=== PATIENT | female | born 1985 | race Caucasian/White ===

== ENCOUNTER 2017-05-03 06:53 | Day surgery (SDC) | payer OTHER ==
[~2017-05-03] VITALS: Ht 165.1 cm; Wt 82.1 kg
[~2017-05-03 06:53] MED LIST: AUGMENTIN 875-1 EACH PO; CHANTIX1 MG PO; CYCLOBENZAPRINE10 MG PO; CYCLOBENZAPRINE5 MG PO; FUROSEMIDE20 MG PO; HYDROCODON-ACE1 EA14; IBUPROFEN800 MG PO; KEFLEX500 MG PO; LABETALOL HCL100 MG PO; MELOXICAM15 MG PO; METOPROLOL TART50 MG; NAPROXEN500 MG PO; NICOTINE PATCH1 EA TD; NORCO 5-325 TA1 EACH PO; OMEPRAZOLE20 MG PO; PENICILLIN V P500 MG; PRENATAL COMPL1 EACH PO; SOMA350 MG PO; SUBOXONE 8 MG-1 EAC1 SL; ZOFRAN ODT4 MG SL
[2017-05-03] MEDS ORDERED: MULTIVITAMINS1 EAC7 PO (07:33)
--- NOTE | 2017-05-03 11:13 | NUR ---
05/03/17 1113 Megha Ramachandran 1109-PATIENT ARRIVED TO PACU ON 10L MASK 02 SAT 100% NONAROUSABLE. ORAL AIRWAY IN PLACE.
--- NOTE | 2017-05-03 11:56 | NUR ---
PT RETURNED FROM PACU. PT TEARFUL AND REPORTING PAIN OF 6/10. MD CONTACTED, WAITING FOR ORDERS. WARM BLANKETS PROVIDED. PT TOLERATING PO FLUID. BED RAILS UP. CALL LIGHT WITHIN REACH.
--- NOTE | 2017-05-03 12:40 | NUR ---
PT TOLERATING PO FOOD AND FLUIDS. FAMILY AT BEDSIDE. BED RAILS UP. CALL LIGHT WITHIN REACH.
[2017-05-03] MEDS ORDERED: KETOROLAC TROME10 MG PO (13:36)
[2017-05-03] MEDS ORDERED: PROMETHAZINE HC25 M1 PO (13:37)
--- NOTE | 2017-05-03 14:20 | NUR ---
LE 1330 UP TO BATHROOM. VOIDED. BACK IN ROOM GETTING DRESSED. 1345 DC INSTRUCTIONS GIVEN TO PT/MOTHER. LEFT VIA W/C.
--- NOTE | 2017-05-05 20:46 | OR ---
[facility] [address] [place], [place] [address] Signed DATE OF OPERATION: 05/03/2017 SURGEON: Celestina Breaux MD PREOPERATIVE DIAGNOSES: A 31-year-old, 3, para 3 with menorrhagia, dysmenorrhea, pelvic pain, endometrial thickening, and smoker. POSTOPERATIVE DIAGNOSES: A 31-year-old, 3, para 3 with menorrhagia, dysmenorrhea, pelvic pain, endometrial thickening, smoker, and endometrial polyp. ANESTHESIA: General endotracheal with pharyngeal mask per Elijah Gilliland CRNA. PROCEDURE: Hysteroscopy with dilation and curettage. INTRAVENOUS FLUIDS IN: 1500 mL of lactated Ringer's. URINE OUTPUT: 100 mL per straight cath. ESTIMATED BLOOD LOSS: 20 mL. PATHOLOGY: Endometrial curettings. FINDINGS: Mildly enlarged uterus sounding to approximately 9.5 cm, irregular endometrium appearing consistent with polyp. PROCEDURE TECHNIQUE: The patient was taken back to the operating table with IV fluids hanging. She was placed on the operating table in supine position, underwent rapid sequence intubation with pharyngeal mask and was then repositioned in dorsal lithotomy position in Jose stirru. She was then prepped and draped in the normal sterile fashion. A sterile weighted speculum was placed into the vagina and a curved retractor used to visualize her cervix. Electronically Signed By: CELESTINA BREAUX MD 05/05/17 2046 PATIENT NAME: MÓNICA WILCOX OPERATIVE REPORT DATE OF : 83 PHYSICIAN: ECLESTINA BREAUX MD REPORT #: [id number] REPORT IS CONFIDENTIAL AND NOT TO BE RELEASED WITHOUT AUTHORIZATION [facility] [address] [place], [place] [address] Signed A single-tooth tenaculum was placed on anterior lip of the cervix and the uterus was sounded to 9.5 cm. The cervix was then serially dilated and the hysteroscope was easily introduced. Good visualization of the uterine cavity was achieved seeing both ostia and irregularity of the endometrial cavity what appeared to be relatively long slender polyp along the posterior aspect of the uterus. The hysteroscope was removed and sharp curettage was then performed. The endometrial curettings were sent off to pathology. There was minimal bleeding. The uterus did appear to be somewhat boggy. Good uterine cry was noted with the use of the curette and all instruments were then removed from the cervix and vagina. The patient did receive one dose of IM Methergine 0.2 mg x1 as well as Toradol intraoperatively. The patient was awakened, extubated, and taken to recovery room in stable condition. There were no complications. Sponge, instrument, and counts were all correct. Celestina Breaux MD JKM/MODL /[id number] Electronically Signed By: CELESTINA BREAUX MD 05/05/17 2046 PATIENT NAME: MÓNICA WILCOX OPERATIVE REPORT DATE OF : 83 PHYSICIAN: CELESTINA BREAUX MD REPORT #: [id number] REPORT IS CONFIDENTIAL AND NOT TO BE RELEASED WITHOUT AUTHORIZATION
== END 2017-05-03 13:45 | disposition home or self-care (01) ==
LOC: DS 06:53
PROVIDERS: Obstetrics & Gynecology
PROC: 0UDB8ZX Extraction of Endometrium, Via Natural or Artificial Opening Endoscopic, Diagnostic (ICD-10-PCS; principal; 2017-05-03 09:45)
DX: N92.0 Excessive and frequent menstruation with regular cycle (principal); N84.0 Polyp of corpus uteri; I10 Essential (primary) hypertension; Z85.6 Personal history of leukemia; Z98.890 Other specified postprocedural states; Z87.891 Personal history of nicotine dependence; Z79.899 Other long term (current) drug therapy
CPT/HCPCS: 00952; J1100; J1885; J2210; J2250; J2405; J2704; J2765; J3010; J7120

== ENCOUNTER 2018-03-22 16:39 | Emergency (ER) | payer OTHER ==
[~2018-03-22] VITALS: Ht 165.1 cm; Wt 83.9 kg
[~2018-03-22 16:39] MED LIST changes: +KETOROLAC TROME10 MG PO; +MULTIVITAMINS1 EAC7 PO; +PROMETHAZINE HC25 M1 PO
[2018-03-22] MEDS ORDERED: VENTOLIN HFA18 GM INH (18:14)
[2018-03-22] MEDS ORDERED: CILOXAN5 ML OS (19:00)
== END 2018-03-22 19:12 | disposition home or self-care (01) ==
LOC: ED 16:39
DX: S05.92XA Unspecified injury of left eye and orbit, initial encounter (principal); W22.8XXA Striking against or struck by other objects, initial encounter; F17.200 Nicotine dependence, unspecified, uncomplicated
CPT/HCPCS: 99283

== ENCOUNTER 2022-05-27 08:56 | Inpatient (IN) | payer OTHER ==
[~2022-05-27] VITALS: Ht 165.1 cm; Wt 68.6 kg
--- NOTE | ~2022-05-27 | OR ---
[facility] [address] [place], [place] [address] Draft DATE OF OPERATION: 06/05/2022 SURGEON: Kiersten Dominguez MD PREOPERATIVE DIAGNOSES: 1. Increasing bilateral pleural effusion, right greater than left. 2. Septic emboli with cavitary changes, bilateral lung. 3. Tricuspid endocarditis. 4. Persistent episodic fever and elevated white count. POSTOPERATIVE DIAGNOSIS: Right bloody pleural effusion (scant aspirate). PROCEDURE: Right thoracentesis. ANESTHESIA: 1% lidocaine. INDICATION: This 36-year-old white woman has been hospitalized since May 27, 2022. She is currently managed by hospitalist, Dr. Bauer. She has been found to have infective endocarditis with multiple positive blood cultures, including tricuspid vegetations. She has septic emboli bilaterally to the lungs with small cavitary lesions and an increasing size of bilateral pleural effusion, right greater than left. Consideration has been made for drainage of the pleural fluid and the possibility it could be infected and a source for ongoing fever and white count, however, the tricuspid endocarditis is certainly the most likely cause. The risks of bleeding, infection, pneumothorax, and need for other indicated procedures, including chest tube were reviewed with the patient and her mother. They understand and wished to proceed. FINDINGS: Somewhat bloody pleural fluid was noted from the right side. One could never establish good ongoing free flow of fluid. Two separate sites were ultimately used on the right side, again showing only minimal fluid. Whether there is loculation or some other issue is uncertain. A chest x-ray is pending. The fluid has been sent for Gram stain, acid-fast bacilli, and cultures. DESCRIPTION OF PROCEDURE: In the upright position, the arms draped over the White stand and pillows for support. PATIENT NAME: MÓNICA WILCOX OPERATIVE REPORT DATE OF : 83 REPORT #: [id number] PHYSICIAN: KIERSTEN DOMINGUEZ MD PCP: DAYANARA DELGADO PAC REPORT IS CONFIDENTIAL AND NOT TO BE RELEASED WITHOUT AUTHORIZATION [facility] [address] [place], [place] [address] Draft The right posterior thorax was examined. The tip of the scapula was marked with skin, as her arms were draped over the White stand. The posterior thorax on the right was prepared with chlorhexidine solution and draped sterilely. 1% lidocaine was injected over what would likely be the 7th rib on the right side. The pleural space was entered and a small amount of pleural fluid noted. A thoracentesis catheter kit, angiocatheter was placed in the pleural space under aspiration and drained some cher, somewhat turbid fluid. It was not elizabeth pus, however. This was unable to be sustained for long despite 3-way stopcock in the usual maneuvers. On that basis, the needle was removed and two additional attempts were made lateral to this along the rib area. Again only scant pleural fluid was noted. The fluid that was obtained was approximately 20 mL at most. Specimen was sent for the aforementioned studies. A Band-Aid was applied. She tolerated procedure well. Postprocedure chest x-ray is pending. MD LEÓN Gomez/SHANNEN /[id number] cc: MD Dr. Lizette Whelan Copies: MILADY CRUZ MD ~ PATIENT NAME: MÓNICA WILCOX OPERATIVE REPORT DATE OF : 83 REPORT #: [id number] PHYSICIAN: KIERSTEN DOMINGUEZ MD PCP: DAYANARA DELGADO PAC REPORT IS CONFIDENTIAL AND NOT TO BE RELEASED WITHOUT AUTHORIZATION
--- NOTE | ~2022-05-27 | OR ---
[facility] [address] [place], [place] [address] Draft DATE OF OPERATION: 06/06/2022 SURGEON: Kiersten Dominguez MD PREOPERATIVE DIAGNOSES: 1. Bilateral pleural effusion, right greater than left. 2. Documented infective endocarditis, tricuspid valve with multiple pulmonary septic emboli with cavitary changes. POSTOPERATIVE DIAGNOSES: 1. Bilateral pleural effusion, right greater than left. 2. Documented infective endocarditis, tricuspid valve with multiple pulmonary septic emboli with cavitary changes. 3. Right pleural thickened loculations. PROCEDURE: Right tube thoracostomy (chest tube 28-Namibian.) ANESTHESIA: Intravenous sedation propofol. Lalit Navarrete CRNA and local 10 mL of 0.25% Marcaine with epinephrine. INDICATION: This 36-year-old white woman was admitted on May 27, 2022 with fevers of unknown origin, ultimately found to have infective endocarditis of the right tricuspid valve. This is related to relapse of intravenous drug abuse. She has had spiking fevers, elevated white count, and so forth. Her initial CT scan confirmed additionally multiple cavitary lesions of the right and left lungs and a small pleural effusion bilaterally. She was making improvement on IV antibiotic nafcillin concordant to staph cultures obtained, but then began having increasing white count elevation. She has not really had dyspnea, shortness of breath or hemoptysis. A repeat CT scan was performed two days ago, which showed increased size of right and left pleural effusions. The right is greater than the left. Concern is maintained for the possibility of empyema development under the circumstances. I performed a right-sided thoracentesis yesterday, which delivered only 20 mL of fluid that was somewhat bloody. Gram stain confirmed no evidence of organisms but did show multiple and many white cells and some red cells. On the basis of her pleural effusion and in hopes of avoiding true empyema, I have recommended right-sided chest tube, possible left side depending on clinical findings. The patient and her family PATIENT NAME: MÓNICA WILCOX OPERATIVE REPORT DATE OF : 83 REPORT #: [id number] PHYSICIAN: KIERSTEN DOMINGUEZ MD PCP: DAYANARA DELGADO PAC REPORT IS CONFIDENTIAL AND NOT TO BE RELEASED WITHOUT AUTHORIZATION [facility] [address] [place], [place] [address] Draft understand the risk of bleeding, infection, lung injury, need for other indicated procedures and so forth. FINDINGS: Entry of the pleural space demonstrated chicken fat like pleural debris. Sweeping of the finger allowed for encountering of a pleural space. A 28-Namibian chest tube was insinuated into the space, but still not much delivery of fluid in fact. There was no evidence of air leak once the Pleur-evac type device was set up to the atrium. Given the findings, I elected against placing a similar chest tube on the left side at this time. DESCRIPTION OF PROCEDURE: The patient was brought to the operating room and in the supine position with arms out, she was given intravenous sedation. She has been on intravenous Zyvox antibiotic. The left and right chest spaces were prepared with chlorhexidine solution and draped sterilely. An area lateral to the right nipple areola complex in the anterior axillary line, an area that was designated as probably the 6th rib. Infiltration of Marcaine 0.25% with epinephrine was undertaken. A transverse incision was made. Dissection carried through the subcutaneous tissue with blunt electrocautery dissection. Once the rib was encountered, additional local anesthetic was injected. Entry to the right pleural space did not demonstrate free-flowing fluid by any means. The pleural space was ultimately entered with careful insinuation of a Carmen clamp and gentle spreading of the soft tissue directly over the rib. A small amount of fluid was withdrawn. The index finger was placed into the pleural space. There was encountered pleural adhesions and pleural thickening with chicken fat like consistency. Finger was swept anteriorly laterally and as much as possible along the chest wall to create a space which was ultimately forthcoming. A 28-Namibian straight chest tube was insinuated into the space and passed without resistance to about 14 cm. It was secured to the skin with nylon suture and attached to an atrium Pleur-Evac device at 20 cm suction. A brief amount of air leak was noted, which quickly sealed. There is impressively little pleural fluid withdrawn through the chest tube intervention. Good fluctuation on the tube was noted indicating good position in the pleural space. The tube was then secured with pink tape to the chest wall, sterilely dressed and connections also secured with pink tape. She was ultimately allowed to emerge from sedation, taken to recovery room in good condition having suffered no known complications. Sponge, needle, and instrument counts reported as correct x3. Blood loss was minimal. A postprocedure chest x-ray is pending. Kiersten Dominguez MD PATIENT NAME: MÓNICA WILCOX OPERATIVE REPORT DATE OF : 83 REPORT #: [id number] PHYSICIAN: KIERSTEN DOMINGUEZ MD PCP: DAYANARA DELGADO PAC REPORT IS CONFIDENTIAL AND NOT TO BE RELEASED WITHOUT AUTHORIZATION [facility] [address] [place], [place] [address] Draft /[facility] /[id number] cc: MD Selvin Winters MD Copies: MILADY CRUZ MD, LOHITH MD ~ PATIENT NAME: MÓNICA WILCOX OPERATIVE REPORT DATE OF : 83 REPORT #: [id number] PHYSICIAN: KIERSTEN DOMINGUEZ MD PCP: DAYANARA DELGDAO PAC REPORT IS CONFIDENTIAL AND NOT TO BE RELEASED WITHOUT AUTHORIZATION
--- NOTE | ~2022-05-27 | CONS ---
[facility] [address] [place], [place] [address] Draft DATE OF CONSULTATION: 06/04/2022 REQUESTING PHYSICIAN: Dr. Bauer. PROBLEM: Bilateral pleural effusion, known tricuspid endocarditis, increasing white count. HISTORY OF PRESENT ILLNESS: This 36-year-old white woman has had a relapse of intravenous drug abuse and was admitted to the hospital by Dr. Titus on May 27, 2022 (8 days ago) with "pneumonia." She had presented with several weeks of fever, chills, body aches, and cough. She presented to emergency room with hyponatremia and leukocytosis, and lactic acid level of 2.1. Evaluation evolved under the care of Dr. Titus and subsequently Dr. Edwards, which included an echocardiogram confirming valvular vegetations of the tricuspid valve consistent with endocarditis. The patient is known to have menorrhagia and has undergone transvaginal ultrasound and pelvic ultrasound on May 31, 2022 showing a normal right ovary and nonvisualized left ovary and no particular abnormality of the uterus other than prior scar findings. A chest CT scan performed on May 30, 2022 had shown multiple cavitary lesions and no specific pulmonary infiltrate, but did show a modest size right pleural effusion. There were some pulmonary nodules, possibly infectious related as well. There was some interlobar fluid on the right side. Intravenous antibiotics had been administered and she has been improving in that regard, however, her white count has been progressively increasing. Her white count at presentation was 17,000, down to 15.3 on May 30 and steadily increasing to the point it is now 27.8 on June 04. 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 A CT scan was repeated yesterday, June 03, which showed a moderate to large size right pleural effusion and a smaller, but still substantial left pleural effusion. Pulmonary nodules are highly suggestive of septic emboli. There was no actual pulmonary embolism proper. The patient feels reasonably well. She has only mild dyspnea. Consultation was obtained on the basis of the pleural fluid and whether or not empyema is developing based on her underlying issues. A chest x-ray performed today, showed bibasilar fluid, no pneumothorax and a PICC line with the tip in the cavoatrial junction. Her past medical history is notable for intravenous drug use in the past with subsequent recovery and ultimately counseling for those afflicted by addiction, but more recent relapse into IV drug use. Care was assumed from Dr. Edwards yesterday, June 03 and consultation is obtained at this time to better consider the issues related to the pleural effusions as a cause of increasing white count. PATIENT NAME: MÓNICA WILCOX CONSULTATION DATE OF : 83 REPORT #: [id number] PHYSICIAN: KIERSTEN DOMINGUEZ MD PCP: DAYANARA DELGADO PAC REPORT IS CONFIDENTIAL AND NOT TO BE RELEASED WITHOUT AUTHORIZATION [facility] [address] [place] [id number] Draft Of note, her blood cultures have shown staph aureus, considered oxacillin sensitive. A change to antibiotic regimen to include vancomycin has been outlined by Dr. Bauer today. REVIEW OF SYSTEMS: She denies any actual shortness of breath, particularly. She has had no hemoptysis. She denies chest pain. PHYSICAL EXAMINATION: GENERAL: Pleasant white woman, accompanied by her mother and a male significant other. VITAL SIGNS: Temperature at the moment is 97.7, pulse of 83, blood pressure 123/73, and O2 saturation on room air is 97%. NECK: Trachea is midline. She has no jugular venous distention. LUNGS: Breath sounds are somewhat diminished bilaterally. There are no E to A changes. She has extensive tattoos on her posterior thorax. HEART: Regular. I do not detect murmur at this time. ABDOMEN: Nondistended. EXTREMITIES: Show no clubbing, but there is mild edema bilaterally. LABORATORY STUDIES: At the moment show white count 27.8, hematocrit 26.9, and platelets 476,000. Manual differential shows 83% neutrophils, 9% band forms. Her coag studies at admission showed an INR of 1.14. Chem profile recently normal electrolytes, though sodium is slightly low at 132, magnesium is 1.5, bilirubin 1.2, alkaline phosphatase 285. No other liver enzymes normal. Urinalysis at admission showed probable urinary tract infection, currently is normal on June 02, though there was 7-11 white cells per high-power field. Her tox screen at admission showed buprenorphine as well as marijuana. Serology admission was negative for coronavirus or influenza. I reviewed her CT scan of chest, plain x-rays and reports from all of those and other images. ASSESSMENT: Her pleural effusion in the right has increased over the past few days as has that on the left. Septic emboli manifests as multiple cavitary lesions as noted as well. She is considered to have infective endocarditis of the tricuspid valve based on imaging studies and clinical history and blood cultures. If there is infected fluid of the pleural space, it should absolutely be drained so as to avoid forming a more consolidated empyema, which would portend lung entrapment and so forth. Under the circumstances, I would recommend thoracentesis on the right side initially. Frankly purulent material was noted and a chest tube would be more appropriate. Given her underlying social and medical issues, a chest tube would be more PATIENT NAME: MÓNICA WILCOX CONSULTATION DATE OF : 83 REPORT #: [id number] PHYSICIAN: KIERSTEN DOMINGUEZ MD PCP: DAYANARA DELGADO PAC REPORT IS CONFIDENTIAL AND NOT TO BE RELEASED WITHOUT AUTHORIZATION [facility] [address] [place], [place] [address] Draft effectively placed under anesthetic conditions in the operating room setting and it could be placed in a bilateral position. If the pleural fluid proves to be primarily reactive and without sign of elizabeth infection, then thoracentesis alone will be beneficial for decompressing the pleural space as well as characterizing the fluid itself. The risks of bleeding, infection, and pneumothorax were reviewed. I have reviewed all this with Dr. Bauer and he agrees. We will plan to do right-sided thoracentesis in the near future. Kiersten Dominguez MD /MODL /[id number] cc: MD Dr. Lizette Monreal MD Copies: MILADY TITUS MD, LOHITH MD ~ PATIENT NAME: MÓNICA WILCOX CONSULTATION DATE OF : 83 REPORT #: [id number] PHYSICIAN: KIERSTEN DOMINGUEZ MD PCP: DAYANARA DELGADO PAC REPORT IS CONFIDENTIAL AND NOT TO BE RELEASED WITHOUT AUTHORIZATION
[~2022-05-27 08:56] MED LIST changes: +CILOXAN5 ML OS; +VENTOLIN HFA18 GM INH
--- NOTE | 2022-05-27 14:11 | NUR ---
pt to room 115 from er via strecher - tele and bedside pulse ox placed, pt moved on own from strecher to bed and was weighed. Moans and groans in pain, generalized ache she describes. pt has hx of incontincnce - attends placed. iv fusing 125/hr. vitals in. water and call light with pt.
--- NOTE | 2022-05-27 17:36 | NUR ---
pt up in for meal. call light in reach - rn talked with dr to update on rx history - pt used old meds for comfort.
--- NOTE | 2022-05-27 18:27 | NUR ---
assisted pt from to bed, max assist - pt very unsteady and can not stand on her own, back to bed - on left side with pillows to position.
--- NOTE | 2022-05-27 19:05 | NUR ---
RECEIVED REPORT FROM OFFGOING SHIFT, HOURLY ROUNDING INITIATED.
--- NOTE | 2022-05-27 19:16 | EKG ---
[facility] [address] [facility] [place], [place] [address] Signed Sinus tachycardia Otherwise normal ECG No previous ECGs available Confirmed by MILADY CRUZ MD ([id number]) on 05/27/2022 7:15:51 PM Electronically Signed By: MILADY CRUZ MD 05/27/221915 PATIENT NAME: MÓNICA WILCOX Electrocardiogram DATE OF : 83 PHYSICIAN: MILADY CRUZ MD REPORT #: [id number] REPORT IS CONFIDENTIAL AND NOT TO BE RELEASED WITHOUT AUTHORIZATION
--- NOTE | 2022-05-27 19:18 | NUR ---
PT COMLPAINING OF DISCOMFORT, TEMPERATURE CHECKED AND FOUND TO BE 102. PT HAS TYLENOL/MOTRIN ORDERED BUT OUT OF SCHEDULE AT THIS TIME. CONTACTED MD AND STATED SHE WOULD PUT IN NEW ORDERS.
--- NOTE | 2022-05-27 20:15 | NUR ---
in to assist rn with pt pivot to bsc, 1-2pa, voided, back to bed, pillows in place, ice water filled, no further needs at this time
--- NOTE | 2022-05-27 21:27 | NUR ---
PT TEMPERATURE TAKEN POST-TYLENOL AND FOUND TO BE REDUCED TO 100.3. WILL CONTINUE TO MONITOR.
--- NOTE | 2022-05-27 21:30 | NUR ---
in to assist with vs, pt is feeling angelica villalta aware
--- NOTE | 2022-05-28 | NUR ---
in to assist pt with new gown and linen, repostitioned to left side, pts temp returning to normal
--- NOTE | 2022-05-28 00:04 | NUR ---
IN PT ROOM RESPONDING TO CALL LIGHT. PT CLOTHING/BEDDING WET, CHECKED TEMPERATURE AND FEVER HAS BROKEN - 98.5 - PT BEDDING/GOWN CHANGED OUT, PT REPOSITIONED, CALL LIGHT IN REACH
--- NOTE | 2022-05-28 02:15 | NUR ---
in to get vs, pt assisted onto the bedpan, pt asking for a pain medication, rn informed
--- NOTE | 2022-05-28 03:30 | NUR ---
in to provided pt with blanket, pt felt like she needed to pass a bm, 1pa pivot to the bsc, back to bed, postitioned high up on right side, pillow to the left hip, pillow between knees, call light in hand
--- NOTE | 2022-05-28 03:33 | NUR ---
IN PT ROOM FOR ROUNDING. PT RESTING, EYES CLOSED, BREATHING EVEN AND UNLABORED, NO INDICATION OF PAIN OR DISCOMFORT. CALL LIGHT IN REACH.
--- NOTE | 2022-05-28 05:06 | NUR ---
IN PT ROOM FOR ROUNDING. PT RESTING ON RIGHT SIDE, PILLOW SUPPORTING TO KEEP PATIENT OFF OF BACKSIDE WHICH IS PAINFUL TO LAY ON. PT HAS NO COMPLAINT OF PAIN OR DISCOMFORT AT THIS TIME. CALL LIGHT IN REACH.
--- NOTE | 2022-05-28 09:00 | NUR ---
PATIENT SITTING UP IN CHAIR AT THIS TIME, NO ACUTE DISTRESS NOTED. PATIENT REPORTS SHE SLEPT WELL LAST NIGHT. ADMIN TYLENOL 650MG PO, MOTRIN 400MG PO AND ROBITUSSIN 10ML FOR GENERLAZIED PAIN AND COUGH. PATIENT DENIES NEEDS AT THIS TIME. PERSONOL SUPPLIES AND CALL LIGHT WITHIN REACH.
--- NOTE | 2022-05-28 10:23 | NUR ---
ADMIN ZOFRAN 4MG IV FOR NAUSEA.
--- NOTE | 2022-05-28 10:57 | NUR ---
ASSISTED PT BACK TO BED WIT BY ASSIST. PT WAS TANGLED IN IV/EKG LEADS, NEW GOWN AFTER UNTANGLMENT, BACK TO BED POSITIONED TO R SIDE W/PILLOW UNDER L HIP, R ARM FLOATED W/PILLOW, WARM BLANKETS GIVE. SHE TOLERATED MOVEMENT POORLY W/GRIMICING AND HEAVY BREATHING. SHE IS COMFORTABLE IN BED & STATES SHE WOULD LIKE TO WAIT FOR HER SHOWER NOW SHE IS "TOO TIRED" AND "PLEASE LET ME SLEEP". I STATED I WOULD CHECK BACK WITH HER LATER. CALL LIGHT IN HAND.
[2022-05-28] MEDS ORDERED: IBU-200200 MG PO (11:57)
--- NOTE | 2022-05-28 11:57 | NUR ---
MED REC COMPLETE
--- NOTE | 2022-05-28 12:39 | NUR ---
CHECKED TWICE TO TALK WITH PATIENT. ONCE ASLEEP. THIS TIME HAS LUNCH IN, HAS VISITOR AND SHE IS USING PHONE. STATES SHE IS "BUSY".
--- NOTE | 2022-05-28 12:46 | NUR ---
PATIENT ASSISTED TO RESTROOM AT THIS TIME. PATIENT NOTED TO BE VERY WEAK, GAIT A BIT UNSTEADY. 1PA USING FWW. SIGNIFICANT OTHER AT BEDSIDE.
--- NOTE | 2022-05-28 14:21 | NUR ---
PT ALERT, ORIENTED AND SITTING IN CHAIR. TEARS BEGAN TO FLOW I VISITED WITH PT. STATED SHE SLEPT OK, GOOD VISIT. PT REQUESTED PRAYER, LEFT G.POST AND GAVE BLESSING. WILL FOLLOW
--- NOTE | 2022-05-28 14:27 | NUR ---
PATIENT IN BED RESTING, EYES CLOSED, RESPIRATIONS EVEN AND NON LABORED. PATIENT'S IV PATENT, FLUIDS INFUSING PER PROVIDER ORDER. CALL LIGHT WITHIN REACH.
--- NOTE | 2022-05-28 15:30 | NUR ---
PT GOT SHOWER. PT SITTING UP IN CHAIR CALL LIGHT WITHIN REACH NO FURTHER TASKS AT THIS TIME
--- NOTE | 2022-05-28 19:25 | NUR ---
received report from offgoing shift. hourly rounding initiated
--- NOTE | 2022-05-28 21:09 | NUR ---
in pt room for rounding, pt resting on back, pillow under side, pt slightly labile, teary at times. pt states she "misses family" and is "sorry I got this sick". Pt call light in reach
--- NOTE | 2022-05-28 22:35 | NUR ---
in pt room for medication adminstration. pt complaining of pain generalized throughout body and "especially my butt" (coccyx). Pt given pain medication and repositioned to pt relief. Pt call light in reach, no further complaint of discomfort.
--- NOTE | 2022-05-29 01:22 | NUR ---
in pt room for assessment, pt resting on back, assisted with repositioning. Pt states she has "mild" pain, can wait for availability of medication. Pt call light in reach
--- NOTE | 2022-05-29 03:30 | NUR ---
in pt room to assist to restroom. Pt complaining of "lots of pain". Pt assisted to bathroom and back to bed without incident, respositioned for maximal confort. Pt states that pain is better with respositioning, no further complaint at this time, call light in reach
--- NOTE | 2022-05-29 04:46 | NUR ---
in pt room for medication administration and repositioning. Pt assisted with repositioning and given pain medication, call light in reach
--- NOTE | 2022-05-29 05:47 | NUR ---
in pt room for rounding. pt resting on back, HOB elevated, call light in reach, no complaint of pain at this time.
--- NOTE | 2022-05-29 08:08 | NUR ---
PT CALLED FOR ASSISTANCE TO THE RESTROOM. SHE IS ABLE TO STAND ON HER OWN WITH THE USE OF A FWW. SHE IS STEADY ON HER FEET BUT COMPLAINS OF SLIGHT PAIN IN HER LEGS. PT IS ABLE TO PERFORM OWN JAMMIE CARE. NEW BREIF, HANDWASHING, ABULATED BACK TO CHAIR FOR BREAKFAST. LINENS WERE CHANGED, SHE WAS GIVEN TWO WARM BLANKETS. FEET ARE ELEVATED. CALL LIGHT AND BELONGINGS BESIDE HER.
--- NOTE | 2022-05-29 10:11 | NUR ---
PATIENT SITTING IN CHAIR, NO ACUTE DISTRESS. PATIENT PROVIDED WITH TYLENOL 650MG PO AND IBUPROFEN 400MG PO FOR GENERALIZED PAIN. PATIENT IS ON ROOM AIR, RESPIRATIONS EVEN AND NON LABORED. PT REPORTS BLOOD IN SPUTUM WHEN SHE COUGHS, THIS RN VIZUALIZED SPUTUM-THIN LIGHT COLORED BLOOD NOTED. SWELLING NOTED TO LEGS, ENCOURAGED ELEVATION AND AMBULATION. IV SITE PATENT, ABX INFUSING PER PROVIDER ORDER. NO CURRENT NEEDS, PERSONAL SUPPLIES AND CALL LIGHT WITHIN REACH.
--- NOTE | 2022-05-29 10:15 | NUR ---
PT REQ TO USE BATHROOM. PT ASSISTED TO BATHROOM. SBA W FWW. PT CALLED WHEN COMPLETE. PT STATED SHE WAS UNABLE TO CLEAN HER BOTTOM/ JAMMIE AREA. I CLEANED PT BOTTOM/JAMMIE AREA. PT ASSISTED BACK TO CHAIR, PRIOR TO PT SITTING DOWN IN CHAIR PT WAS INDEP STANDING IN ROOM WO WALKER AND WAS ABLE TO EASILY SIT BACK IN CHAIR. PT WAS STABLE THE ENTIRE TIME. NO FURTHER NEEDS. CALL LIGHT WITHIN REACH
--- NOTE | 2022-05-29 10:21 | NUR ---
SPOKE WITH PATIENT IN ROOM. PATIENT IS UP IN CHAIR, ROOM DARKENED. STATES SHE LIVES WITH S.O. AND KIDS. SHE DRIVES. IS NOT WORKING. USES NO DME. HAS STAIRS AT HOME BUT NO ISSUES WITH THEM NORMALLY. PATIENT STATES SHE IS NOT WORRIED ON FOOD EXACTLY BUT IS WORRIED ABOUT AFFORDING UTILITIES, ESPECIALLY ELECTRIC. STATES SHE RAN OUT OF PHONE MINUTES TO CALL [employer]. DISCUSSED SHE CAN USE ROOM PHONE HERE IF SHE WOULD LIKE. WILL MAKE SURE SHE HAS PHONE NUMBER FOR THEM. SHE WILL HAVE TRANSPORTATION HOME SHE STATES AT DISCHARGE AND FEELS SAFE TO RETURN THERE. SHE HAS PCP, ALTHOUGH STATES SHE HASN'T BEEN THERE FOR AWHILE. SHE CAN THINK OF NOTHING SHE NEEDS.
--- NOTE | 2022-05-29 12:46 | NUR ---
PATIENT UP TO RESTROOM, SBA WITH WALKER. PATIENT REPORTS GENERALIZED WEAKNESS, GAIT NOTED TO BE IMPROVING. PATIENT DECLINED TO SIT UP IN CHAIR AT THIS TIME, BACK TO BED PER HER REQUEST. FRESH WATER PROVIDED. ENCOURAGED PATIENT TO CALL IF SHE HAS NEEDS. PERSONAL SUPPLIES AND CALL LIGHT WITHIN REACH.
--- NOTE | 2022-05-29 16:10 | NUR ---
pt call light answered. pt req to use bathroom. pt provided walker but indep in bathroom. pt indep back to bed. ice water given. blankets provided. pt req pain med. rn notified. no further needs. call light within reach
--- NOTE | 2022-05-29 19:03 | NUR ---
received report from offgoing shift, hourly rounding initiated
--- NOTE | 2022-05-29 19:40 | NUR ---
IN TO ASSIST PT TO THE BATHROOM, SBA/SUPERVISION, BACK TO BED, ICE WATER FILLED
--- NOTE | 2022-05-29 21:05 | NUR ---
IN TO ASSIST PT TO THE TOILET, BACK TO BED, VS DONE, PT REQUESTED DINNER REHEATED, PROVIDED, NO FURTHER NEED AT THIS TIME
--- NOTE | 2022-05-29 21:26 | NUR ---
in pt room for rounding. pt resting on back, call light in reach, breathing even and unlabored with no complaint of pain at this time.
--- NOTE | 2022-05-29 22:20 | NUR ---
IN TO ASSIST PT TO THE TOILET, POSITIONED ON SIDE FOR COMFORT
--- NOTE | 2022-05-29 22:43 | NUR ---
In pt room for rounding, pt resting on side, states discomfort, repositioned on back with pillow under left side for comfort, pt states she is in pain, medication available and administered. call light in reach
--- NOTE | 2022-05-29 23:53 | NUR ---
in pt room for rounding, pt resting with eyes closed, breathing even and unlabored, call light in reach
--- NOTE | 2022-05-30 00:14 | NUR ---
in pt room in answer to call light. pt requesting socks off while in bed. pt bedding reset and socks removed, pt states increase in comfort. call light in reach, no complaint of pain
--- NOTE | 2022-05-30 03:49 | NUR ---
pt assisted with pillows once more, warm blanket provided
--- NOTE | 2022-05-30 04:50 | NUR ---
in pt room for pain medication administration and repositioning. pt complaining of pain in back - pulled up in bed, repositioned, no further complaint. call light in reach.
--- NOTE | 2022-05-30 05:12 | NUR ---
IN TO SEE IF PT WOULD LIKE TO GET UP TO CHAIR. PT REFUSED. NO FURTHER NEEDS. CALL LIGHT WITHIN REACH
--- NOTE | 2022-05-30 05:37 | NUR ---
in pt room for rounding. pt resting on back, breathing even and unlabored. Pt call light in reach, no indication of pain
--- NOTE | 2022-05-30 07:10 | NUR ---
REPORT RECIEVED FROM JOSE F STEPHENSON, ALL QUESTIONS ANSWERED.
--- NOTE | 2022-05-30 09:28 | NUR ---
PT IN CHAIR. VITALS AND IS AND OS COMPLETE. PT REQ TO GET BACK IN BED. PT ASSISTED BACK TO BED. SBA W FWW. PT IS VERY STEADY AND NEEDS NO HELP FROM ME. PT ABLE TO STAND WO WALKER AND SIT HERSELF IN BED. PT PROVIDED BLANKETS. NO FURTHER NEEDS. CALL LIGHT WITHIN REACH
--- NOTE | 2022-05-30 09:34 | NUR ---
MORNING ASSESSMENT COMPLETE. PT UP IN RECLINER. BILAT UPPER EXP WHEEZE AND COARSE BASES HEARD. PT C/O BACK PAIN, WOULD LIKE TO AMBULATE HALLWAYS TODAY. EXPLAINED PAIN MEDICATION SCHEDULE. PT DENIES FURTHER NEEDS AT THIS TIME. CALL LIGHT IN REACH.
--- NOTE | 2022-05-30 11:30 | NUR ---
PT UP AMBULATING WITH PHYSICAL THERAPY. TOLERATED WELL STANDBY ASSIST.
--- NOTE | 2022-05-30 13:29 | NUR ---
PT UP TO RESTROOM AND BACK TO CHAIR. DR PAIZ IN ROOM WITH PATIENT. CALL LIGHT IN REACH.
--- NOTE | 2022-05-30 19:36 | NUR ---
REPORT RECEIVED FROM DAY SHIFT RN. PT SITTING IN RECLINER ALERT AND ORIENTED. DENIES NEEDS. WHITE BOARD UPDATED. CALL LIGHT IN REACH.
--- NOTE | 2022-05-30 22:15 | NUR ---
EVENING ASSESSMENT COMPLETE. SCHEDULED MEDS ADMIN PER EMAR. PT REPORTS BACK/SIDE PAIN 11/23. PRN FOR PAIN ADMIN PER EMAR. PT REPORTS BED IS UNCOMFORTABLE AND CAUSING BACK PAIN. EGG CRATE MATTRESS PLACED. OCCASIONAL COUGH NOTED. PT ON RA. SpO2 100%. DENIES SOB. LUNGS DIM IN THE BASES. IV ABX INFUSING WNL. PT DENIES QUESTIONS OR CONCERNS. CALL LIGHT IN REACH.
--- NOTE | 2022-05-30 23:42 | NUR ---
CALL LIGHT ANSWERED. ICE WATER AND GINGERALE PROVIDED PER REQUEST. ROOM TEMP ADJUSTED. PT REPORTS SHE IS RESTING BETTER WITH EGG CRATE MATTRESS TOPPER. NO FURTHER NEEDS.
--- NOTE | 2022-05-31 01:47 | NUR ---
PT REPORTS SHE IS "GETTING SOME REST." ROOM TEMP ADJUSTED PER REQUEST. IV ABX INFUSING WNL. NO FURTHER NEEDS.
--- NOTE | 2022-05-31 04:12 | NUR ---
CALL LIGHT ANSWERED. PT REQUESTING PRN FOR PAIN. ADMIN PER ORDER. PRN GIVEN FOR COUGH PER REQUEST. PT WITH HACKING COUGH AND SMALL AMOUNT PINK TINGED SPUTUM. ASSESSMENT COMPLETE. FRESH WATER PROVIDED. NO FURTHER NEEDS.
--- NOTE | 2022-05-31 06:21 | NUR ---
PT RESTING WITH EYES CLOSED. AWAKENS EASILY. IV ABX INFUSING PER ORDER. NO NEEDS AT THIS TIME. CALL LIGHT IN REACH.
--- NOTE | 2022-05-31 07:20 | NUR ---
report from Stephany rn, pt eyes closed resting. call light in reach.
--- NOTE | 2022-05-31 09:15 | NUR ---
IN ROOM FOR ASSESSMENT AND MEDS, PT UP IN AFTER SHOWER REPORTS FEELING BETTER BUT STILL WEAK. DRINKING COFFEE, IV FUSING R ARM. LUNGS CLEAR - ASKING ABOUT CT RESULTS - REFERED TO DR WITH ROUNDS TODAY. CALL LIGHT IN REACH.
--- NOTE | 2022-05-31 10:17 | NUR ---
assisted pt to use IS while in for po prn meds and cough syrup - demonstrates the use well with reinforcement. pt talkative, wanting to go home.
--- NOTE | 2022-05-31 13:50 | NUR ---
pt resting in bed, complains of indigestion - mom given po. iv abx fusing.
--- NOTE | 2022-05-31 16:45 | NUR ---
cough meds and po tylenol/motrin given for comfort. pt visiting with family. call light in [facility] - iv.
--- NOTE | 2022-05-31 19:39 | NUR ---
REPORT RECEIVED FROM DAY SHIFT RN. PT LYING IN BED ALERT AND ORIENTED. IV ABX COMPLETE. PT SL AT THIS TIME. NO FURHTER NEEDS. WHITE BOARD UPDATED. CALL LIGHT IN REACH.
--- NOTE | 2022-05-31 21:24 | NUR ---
PT UTILIZES CALL LIGHT, REPORTS HEARTBURN. PRN ADMINISTERED. SEE EMAR. PT STATES THAT SHE IS CRAVING CHOCOLATE, REQUESTS HOT CHOCOLATE PROVIDED. PT DENIES FURTHER NEEDS AT THIS TIME. CALL LIGHT IN REACH.
--- NOTE | 2022-05-31 22:30 | NUR ---
EVENING ASSESSMENT COMPLETE. SCHEDULED MEDS ADMIN PER EMAR. IV ABX INFUSING WNL. PT REPORTS SIDE/BACK/CHEST DISCOMFORT AND RIGHT GROIN PAIN THAT IS SHARP AND CONSTANT. NO REDNESS OR WARMTH NOTED IN RIGHT GROIN. PRN FOR PAIN ADMIN PER EMAR. PT DENIES SOB. RA. SpO2 HIGH 90'S. RESPIRATIONS EVEN. C/O SINUS CONGESTION AND COUGH. PRN FOR COUGH ADMIN. UP TO BR TO VOID. NO BLEEDING NOTED. LINENS STRAIGHTENED. BACK TO BED. PT DENIES FURTHER NEEDS AT THIS TIME. CALL LIGHT IN REACH.
--- NOTE | 2022-05-31 23:23 | NUR ---
DR. PAIZ NOTIFIED OF PT INCREASED DISCOMFORT AND RIGHT GROIN PAIN AFTER PRN FOR PAIN ADMIN. NEW TELEPHONE ORDERS RECEIVED VERIFIED WITH READBACK METHOD.
--- NOTE | 2022-05-31 23:55 | NUR ---
WARM PACK WRAPPED WITH PILLOW CASE PROVIDED.
--- NOTE | 2022-06-01 02:27 | NUR ---
PT RESTING IN BED WITH EYES CLOSED. RESPIRATIONS EVEN. HOB ELEVATED. IV ABX INFUSING PER ORDER. K-PAD IN USE. CALL LIGHT IN REACH.
--- NOTE | 2022-06-01 03:33 | NUR ---
CALL LIGHT ANSWERED. PT UP TO BR WITH SBA TO VOID. BACK TO BED. INCREASED RESPIRATIONS AND COUGH WITH ACTIIVTY. PT WITH SMALL AMOUNT BLOOD TINGED SPUTUM. SpO2 97% ON RA. HR 90'S. PT REPORTS SOB, ABLE TO "CATCH HER BREATH" AFTER REST. SCATTERED WHEEZE HEARD IN ALL LUNG ALLEN. HOB ELEVATED. PRN FOR 6/10 GENERALIZED PAIN ADMIN PER EMAR. PT DIAPHORETIC. CLEAN GOWN PROVIDED. ROOM TEMP ADJUSTED. FRESH ICE WATER AND GINGERALE PROVIDED. NO FURTHER NEEDS.
--- NOTE | 2022-06-01 06:00 | NUR ---
VS AND I&O OBTAINED. PT UP TO BR TO VOID. NO BLEEDING NOTED. PT DIAPHORETIC. LINEN AND GOWN CHANGED. IV ABX INFUSING PER ORDER. PRN FOR COUGH ADMIN. WARM BLANKET PROVIDED. NO FURTHER NEEDS.
--- NOTE | 2022-06-01 07:06 | NUR ---
Report from Danielle Blair RN. Resting in bed. Respirations even and unlabored. Allowed to rest.
--- NOTE | 2022-06-01 13:08 | NUR ---
PT ALERT,ORIENTED AND SITTING IN CHAIR WITH TV ON. PT IS DISCOURAGED, FEELS THAT SOMETHING IS WRONG, BUT NO RESULTS TO SHOW WHAT. PT EXPRESSED THAT SHE FEELS THAT IT WILL BE BAD. AWAITING RESULTS FROM LABS AND OTHER TEST RUN TO- DAY. PT ADMITTED WAITING IS VERY HARD. SHARED PRAYER OF SERENITY WHICH PT KNEW AND RECITED WITH ME. FOCUS ON DEALING WITH WHAT WE KNOW, NOT ON WHAT WE DON'T. PT ACKNOWLEDGED, REQUESTED PRAYER AND CROSSWORD PUZZLES. WILL PROVIDE
--- NOTE | 2022-06-01 13:23 | NUR ---
PT WAS GIVE LOVENOX LLQ. PATIENT UP IN CHAIR WATCHING TV WITH BLANKETS ON. DENIES NEEDING ANYTHING AT THIS TIME.
--- NOTE | 2022-06-01 13:31 | NUR ---
SITTING IN CHAIR RESTING,PLAN OF CARE REMAINS THE SAME.PATIENT PLANS TO GO HOME WITH LIFE PARTNER AND 2 CHILDREN.WOULD LIKE TO GO HOME SOON POSSIBLE.
--- NOTE | 2022-06-01 14:00 | NUR ---
IV ANTIBIOTIC WAS TAKEN IN TO START AT 1400. PT REFUSED IV MEDICATION UNTIL SHE WAS ABLE TO HAVE A WALK OUTSIDE. THIS NURSE TOOK PATIENT OUTSIDE FOR 15 MINUTES WHERE HER FAMILY WAS WAITING OUTSIDE TO SEE HER.
--- NOTE | 2022-06-01 15:15 | NUR ---
PATIENT SITTING IN CHAIR WITH DAUGHTER VISITING. PATIENTS LEFTOVER FOOD WAS WARMED UP FOR. WARM BLANKET GIVEN. PATIENT DENIES NEEDING ANYTHING AT THIS TIME.
--- NOTE | 2022-06-01 16:15 | NUR ---
PATIENT PUSHED CALL LIGHT TO USE THE RESTROOM. IV ANTIBIOTICS ARE FINISHED RUNNING. NORMAL SALINE WAS RUNNING FOR FLUSH. IV STOPPED AND IV WAS SALINE LOCKED. PT HAD BM CONSISTENT OF DIARRHEA. PT WALKED BACK TO THE CHAIR ON HER OWN. PT GIVEN BLANKETS, PILLOW, IN CHAIR RESTING WITH FEET UP. CALL LIGHT IN REACH.
--- NOTE | 2022-06-01 17:55 | NUR ---
ECHO AND ULTRASOUND DONE THIS MORNING. CONTINUES TO COMPLAIN OF GROIN PAIN, HEAT PACK HELPS. PRN TYLENOL GIVEN AT 1750. PT WENT OUTSIDE FOR 15 MINUTES FOR FRESH AIR. PT HAS IV ANTIBIOTICS. NEW IV SITE DONE TODAY IN RIGHT HAND. PICC LINE PLACEMENT SCHEDULED FOR TOMORROW. BM X 2, DIARRHEA. FAMILY IN TO VISIT OFF AND ON.
--- NOTE | 2022-06-01 18:24 | NUR ---
PATIENT BACK IN BED RESTING. ANTIBIOTIC RUNNING. PT GIVEN WARM BLANKET.
--- NOTE | 2022-06-01 19:48 | NUR ---
REPORT RECEIVED FROM DAY SHIFT RN. PT LYING IN BED ALERT AND ORIENTED. REPORTS GENERALIZED PAIN. WILL CHECK FOR PRN. DENIES OTHER NEEDS. WHITE BOARD UPDATED. CALL LIGHT IN REACH.
--- NOTE | 2022-06-01 22:00 | NUR ---
V/S AND I&O'S COMPLETED AND RECORDED. ASSISTED PATIENT MOVE FROM CHAIR TO BED. ROOM TIDIED. PICKED UP USED BLANKETS. ICE WATER AND REGULAR SODA PROVIDED PER PATIENT. WARM BLANKET PROVIDED. ROOM TEMP ADJUSTED FROM 76 TO 73 PER PATIENT. ROOM LIGHTS OFF PER PATIENT. CALL LIGHT AND SIDE TABLE WITHIN REACH.
--- NOTE | 2022-06-01 22:28 | NUR ---
PT C/O HEARTBURN/INDIGESTION. NO PRN AVAILABLE. DR. PAIZ CALLED. NEW TELEPHONE ORDERS VERIFIED WITH READBACK METHOD.
--- NOTE | 2022-06-01 23:06 | NUR ---
EVENING ASSESSMENT COMPLETE. SCHEDULED MEDS ADMIN PER EMAR. PT REPORTS GENERALIZED PAIN 10/24. PRN FOR PAIN ADMIN PER EMAR. PRN GIVEN FOR C/O HEARTBURN AND INDIGESTION. PT REPORTS FEELING SLIGHTLY SOB, ASSOCIATES SOB WITH HEARTBURN. HOB ELEVATED. RESPIRATIONS EVEN. SpO2 98% ON RA. LUNGS CLEAR AND DIMINISHED ON RIGHT SIDE. 2+ EDEMA NOTED BLE. BLE ELEVATED ON PILLOWS. WARM BLANKET PROVIDED. NO FURTHER NEEDS AT THIS TIME. CALL LIGHT IN REACH.
--- NOTE | 2022-06-01 23:54 | NUR ---
IV ABX COMPLETE. PT RESTING WITH EYES CLOSED IN A RELAXED POSITION. RESPIRATIONS EVEN. CALL LIGHT IN REACH.
--- NOTE | 2022-06-02 01:28 | NUR ---
PATIENT CALLED TO USE THE BATHROOM. SBA. PATIENT VOIDED UNMEASURED IN SUFFICIENT QUANTITY AND HAD SMALL SOFT BM. PATIENT IS BACK IN BED. NO OTHER NEEDS AT THIS TIME. WHITE BOARD UPDATED.
--- NOTE | 2022-06-02 03:56 | NUR ---
PT AWAKE IN BED. REPORTS SHE IS RESTING "ON AND OFF" PRN FOR COUGH ADMIN PER ORDER FOR DRY HACKING COUGH. FRESH WATER PROVIDED. NO FURTHER NEEDS.
--- NOTE | 2022-06-02 04:17 | NUR ---
CALL LIGHT ANSWERED. SBA TO BATHROOM AND BACK TO BED. CRACKERS PROVIDED PER PATIENT. DENIES FURTHER CARE NEEDS AT THIS TIME.
--- NOTE | 2022-06-02 06:31 | NUR ---
SCHEDULED MEDS ADMIN PER EMAR. PT REPORTS GENERALIZED PAIN /10. PRN FOR PAIN ADMIN PER ORDER. K-PAD APPLIED TO CHEST. PT WITH OCCASIONAL COUGH AND BLOOD TINGED SPUTUM. PT REQUESTING COFFEE, ADVISED PT COFFEE MAY CAUSE INCREASED HEARTBURN. COFFEE PROVIDED PT CONTINUES TO ASK. NO FURTHER NEEDS AT THIS TIME. CALL LIGHT IN REACH.
--- NOTE | 2022-06-02 07:30 | NUR ---
THIS NURSE GOT REPORT FROM DIRECTOR OF ROOMS RN. PT A SLEEPING IN BED.
--- NOTE | 2022-06-02 09:33 | NUR ---
MORNING MEDICATIONS GIVEN, ANTIBIOTIC IS CURRENTLY RUNNING. PATIENT UP TO CHAIR WITH WARM BLANKETS, CALL LIGHT IN REACH. PT STATES HER MOTHER WILL BE HERE FROM [place] TOMORROW AND WONT BE LEAVING HER SIDE. PICC LINE PLACEMENT HAS BEEN MOVED TO POSSIBLEY TOMORROW.
--- NOTE | 2022-06-02 11:28 | NUR ---
PATIENT TAKEN FOR WALK OUTSIDE IN WHEELCHAIR FOR 15 MINUTES WITH THIS NURSE AND STUDENT NURSE. PT BACK IN ROOM RESTING IN CHAIR WITH 7UP WAITING FOR LUNCH TO COME.
--- NOTE | 2022-06-02 11:44 | NUR ---
PATIENT WATCHING TV.PATIENT STATES SHE FEELS A LITTLE BETTER TODAY. OFFERED PATIENT A FELICIA CARD FOR SOMEONE SHE CAN CALL FOR SUPPORT. PATIENT REFUSES HELP AT THIS TIME. ENCOURAGED PATIENT TO ASK FOR HELP IF FEELING DEPRESSED.
--- NOTE | 2022-06-02 12:05 | NUR ---
PT ALERT, ORIENTED AND SN IN CARING FOR PT. SHE IS SITTING IN CHAIR, HAD SOME TIMES OF INSOMNIA LAST NIGHT. GAVE ENCOURAGEMENT, STATED THAT SHE HAS NOT YET RECEIVED ANY RESULTS FROM LABS AND TESTS FROM WEDNESDAY. ENCOURAGED TO JUST WORK ON WHAT WE KNOW AND WHAT WE CAN CONTROL. PT ACKNOWLEDGED. GAVE PSMALLORY AND JIMMY LA. WILL FOLLOW
--- NOTE | 2022-06-02 12:31 | NUR ---
PATIENT IS UP IN CHAIR, CALLED TO REPORT 5/10 MID STERNAL PAIN. PATIENT GIVEN GI COCKTAIL + 650MG OF PO TYLENOL. VITALS ARE ENTERED AND STABLE. PLAN TO UPDATE DR. PAIZ.
--- NOTE | 2022-06-02 12:37 | NUR ---
CALL TO DR. PAIZ TO NOTIFY HIM OF PATIENT STATUS.
--- NOTE | 2022-06-02 13:15 | NUR ---
PATIENT REPORTED TO NURSING STAFF THAT PATIENT WAS HAVING STABBING CHEST PAIN, THAT IS GETTING WORSE. CALL TO DR. PAIZ, HE IS PUTTING IN AN ORDER FOR TRAMADOL WITH NO FURTHER ORDERS.
--- NOTE | 2022-06-02 13:34 | NUR ---
PATIENT IN CHAIR TEARFUL HAVING ANXIETY. PT STILL C/O RIGHT SIDED CHEST PAIN. WAS ADVISED, ULTRAM GIVEN AND DR. PAIZ CURRENTLY IN ROOM VISITING WITH PATIENT.
--- NOTE | 2022-06-02 14:14 | NUR ---
IV ABX INFUSING FOR ONE HOUR. PATIENT GIVEN ONE 25MG PO VISTARIL FOR ANXIETY. PATIENT REPORT THAT HER CHEST PAIN IS LOWER AT 4/10 AFTER ULTRAM.
--- NOTE | 2022-06-02 15:52 | NUR ---
PATIENT UP TO CHAIR MOST OF THE DAY. PATIENT WENT OUTSIDE IN THE WHEELCHAIR TODAY FOR ABOUT 10 MINUTES. IV ANTIBIOTICS Q4HRS. PATIENTS ANXIOUS AND CRYING THROUGHOUT DAY. SIGNIFICANT OTHER CAME TO SEE HER. DR. PAIZ D/C PICC LINE PLACMENT ORDERS UNTIL BLOOD CULTURES RESULT BACK.
--- NOTE | 2022-06-02 19:38 | NUR ---
REPORT RECEIVED FROM DAY SHIFT RN. PT SITTING IN RECLINER ALERT AND ORIENTED. DENIES NEEDS. WHITE BOARD UPDATED. CALL LIGHT IN REACH.
--- NOTE | 2022-06-02 21:13 | NUR ---
pt UP IN CHAIR WITH MULTIPLE BLANKETS AND HEATING PAD ON. TEMPERATURE 100.7, IS UTILIZED X 2, pt COMPLAINS OF PAIN WITH DEEP BREATHING, 1000 ML BEST EFFORT WITH IS. SBA TO RESTROOM FOR VOID. IN BED AT THIS TIME, TEMPERATURE IN ROOM TURNED DOWN. PRN PAIN MEDICATION ADMINISTERED, PRN COUGH MEDICATION ADMINISTERED. BED ADJUSTED PER pt REQUEST. SPRITE PROVIDED. CALL LIGHT AND PERSONAL SUPPLIES IN REACH.
--- NOTE | 2022-06-02 21:55 | NUR ---
IN FOR [employer] BUSINESS ANALYST. PT SHIVERING C/O "FREEZING" TEMP 102.6. DR. PAIZ NOTIFIED AND WILL PUT IN NEW ORDERS.
--- NOTE | 2022-06-02 22:35 | NUR ---
DISCUSSED NEED FOR MINI CATH UA, PT AGREES, PROCEDURE EXPLAINED TO PT, MINI CATH OBTAINED FOR CLEAR YELLOW URINE.
--- NOTE | 2022-06-02 22:45 | NUR ---
IV ABX INFUSING PER ORDER. PT REPORTS 6/10 CHEST AND SIDE PAIN. PT TEARFUL. PRN FOR PAIN AND ANXIETY ADMIN PER EMAR.
--- NOTE | 2022-06-02 23:19 | NUR ---
MD NOTIFIED X-RAY AND UA RESULTED. NOTIFIED TEMP 102.9 AND ELEVATED HR. MD RECOMMENDS COOLING INTERVENTIONS.
--- NOTE | 2022-06-02 23:35 | NUR ---
IN ROOM TO REMOVE ALL BLANKETS, PT LEFT WITH SHEET. COOL CLOTHS PLACED TO FOREHEAD AND NECK. PT REPORTS ABD PAIN AND "CRAMPING". PRN ADMIN PER EMAR. TEMP 101.6 AT THIS TIME.
--- NOTE | 2022-06-03 00:29 | NUR ---
CALL LIGHT ANSWERED. IV ABX COMPLETE. COOL CLOTHS TO FOREHEAD AND CHEST REFRESHED. PT WITH NOTHING BUT SHEET OVER LAP AND GOWN ON. TEMP 102.0 ORALLY. PT REPORTS SHE IS TIRED BUT UNABLE TO SLEEP FOR FEAR OF "NOT WAKING BACK UP" REASSURANCE PROVIDED. LIGHTS AND TV OFF PER REQUEST.
--- NOTE | 2022-06-03 02:29 | NUR ---
PT RESTING WITH EYES CLOSED. AWAKENS EASILY. IV ABX INFUSING PER ORDER. PRN ADMIN FOR FEVER AND PAIN. TEMP 100.0 ORALLY.
--- NOTE | 2022-06-03 04:16 | NUR ---
CALL LIGHT ANSWERED. PT UP TO BR TO VOID AND HAVE SMALL SOFT BM. BACK TO BED, RAMOS FAIR. SOB INCREASES WITH ACTIVITY. SpO2 MID 90'S ON RA. HR 100'S. TEMP 98.9. PT DIAPHORETIC. LINENS AND GOWN CHANGED. NO FURTHER NEEDS AT THIS TIME.
--- NOTE | 2022-06-03 06:32 | NUR ---
IV ABX INFUSING PER ORDER. PT REPORTS CHEST/SIDE PAIN 09/23. PRN FOR PAIN ADMIN PER EMAR. PT WITH HACKING COUGH AND THICK BLOOD TINGED SPUTUM. COUGH SYRUP ADMIN PER REQUEST. PT DENIES FURTHER NEEDS. CALL LIGHT IN REACH.
--- NOTE | 2022-06-03 07:00 | NUR ---
report from alma rosa rn, pt eyes closed, call light in reach.
--- NOTE | 2022-06-03 07:20 | NUR ---
PT RESTING IN BED. PT REFUSED GETTING UP TO CHAIR. PT REFUSED AM CARE. PT PROVIDED ICE WATER AND COFFEE. NO FURTHER NEEDS, CALL LIGHT WITHIN REACH
--- NOTE | 2022-06-03 08:11 | NUR ---
PT UP IN , ANXIOUS - EXPECTING MOM TO GET HERE TODAY FROM [place], COUGHING WITH PAIN NOTED - PO MEDS GIVEN SEE MAR. ENC HYDRATION, SL IV, CALL LIGHT IN REACH.
--- NOTE | 2022-06-03 09:33 | NUR ---
PT IN CHAIR. VITALS AND IS AND OS COMPLETE. PT DECLINED RESTROOM NEEDS. PT DECLINED GETTING INTO BED. LEGS ELEVATED. RN NOTIFIED OF PT TEMP. NO NEEDS AT THIS TIME. CALL LIGHT WITHIN REACH
--- NOTE | 2022-06-03 10:08 | NUR ---
DISCUSSED PLAN OF CARE AND PICC LINE, ROOM CLEANED WITH WIPES AND RN VISITED WITH PT TO HELP HER ANXIETY. PT CONT. UP IN , GUEST PACK OF LINENS PROVIDED FOR HER MOM IN ANTICIPATION FOR HER TO STAY TO HELP COMFORT PT.
--- NOTE | 2022-06-03 11:01 | NUR ---
DR PAIZ IN TO SEE PT. PICC NURSE HERE. PLAN FOR BLOOD TX. AND CT NEXT.
--- NOTE | 2022-06-03 12:23 | NUR ---
PICC INSERTION NOTE: PICC LINE REQUESTED BY DR. PAIZ FOR 6+ WEEKS OF ANTIBIOTIC THERAPY FOR THIS PATIENT WHO HAS ENDOCARDITIS. AFTER INTERVIEWING THE PATIENT AND REVIEWING THE CHART, NO ABSOLUTE CONTRAINDICATIONS WERE IDENTIFIED. PATIENT WAS ABLE TO SIGN THE CONSENT FORM FOR PICC PLACEMENT. PATIENT'S RIGHT ARM WAS EVALUATED FIRST USING SITE RITE U/S AND THE BASILIC AND BRACHIAL VEINS WERE EASILY IDENTIFIED. PATIENT HAS A HISTORY OF DRUG USE, AND THE CEPHALIC VEIN WAS NOT VISIBLE THROUGH U/S AND THERE WAS A LONG SCAR TOP OF ARM WHERE CEPHALIC VEIN USUALLY IS LOCATED. PT'S BASILIC VEIN WAS THE BEST CHOICE OF THE TWO VEINS, AND IT WAS ESTIMATED THAT A 4 FR CATHETER WOULD TAKE UP ONLY 9% OF THE VEIN DIAMETER. AFTER STERILE PROCEDURE WAS USED TO PREP PT'S ARM, IV ACCESS WAS EASILY OBTAINED WITH A 20 G CATHETER AND DARK, NON PULSATILE BLOOD WAS APPRECIATED. GUIDEWIRE WAS THEN ADVANCED WITHOUT DIFFICULTY, FOLLOWED BY THE INTRODUCER AFTER USING SCALPEL TO EASE THE OPENING. ONCE INTRODUCER WAS IN, BLOOD WAS STILL RETURNING EASILY, AND PICC WAS THEN ADVANCED SLOWLY, APPROX 1 CM PER SECOND. THE 3CG SHERLOCK GUIDE WAS USED TO LOCATE THE TIP AND OPTIMAL PLACEMENT WAS NOTED. BLOOD WAS STILL ABLE TO BE ASPIRATED AND LINE FLUSHES WELL. CHEST XRAY WAS OBTAINED AND REVIEWED BY DR. PAIZ, WHICH APPROVAL WAS GIVEN TO USE. PT WAS GIVEN EDUCATION MATERIAL AND ENCOUARGED TO ASK QUESTIONS REGARDING HER LINE AT ANY TIME. PT TOLERATED PROCEDURE VERY WELL. STERILE DRESSING WAS PLACED OVER LINE. WAS NOTED VIA
--- NOTE | 2022-06-03 14:04 | NUR ---
PT SITTING UP IN BED, PLEASANT, ALERT AND ORIENTED. PT ENJOYED GETTING OUTSIDE THE BLDG TUES, AND TODAY HAD SUCCESSFUL PICC LINE INSERTED. PT STATED HER MOTHER FROM [place] SHOULD BE HERE LATER TODAY-LOOKING FORWARD TO HER VISIT. GAVE ENCOURAGEMENT, REMINDED HER TO FOCUS CELEBRATING ANY LITTLE VICTORY. PT ACKNOWLEDGED. SHE REQUESTED PRAYER, WILL FOLLOW
--- NOTE | 2022-06-03 14:35 | NUR ---
THIS RN STARTED BLOOD VIA PICC LINE AFTER 2 RN CHECK AND VITALS DOCUMENTED WNL - PT CONSENT AND ID CHECKED - PT EDUCATED ON PLAN OF CARE AND READY TO PROCEED. RN STAYED IN ROOM FOR 15 MIN.
--- NOTE | 2022-06-03 18:26 | NUR ---
BLOOD CONTINUES ON IV PUMP. IV ABX ON HOLD DUE TO ONLY SINGLE LUMEN PICC. DR DELA CRUZ IN WITH THIS RN FOR ASSESSMENT.
--- NOTE | 2022-06-03 19:30 | NUR ---
BEDSIDE REPORT GIVEN PER DAY SHIFT RN. PT RESTLESS, UNCOMFORTABLE, REPOSITIONED IN BED, BLANKET REMOVED AND ROOM TEMP DECREASED, SIGN OTHER AT BEDSIDE, ANTIBODIC INFUSING PER PIC LINE, PT ATTEMPTING TO REST.
--- NOTE | 2022-06-03 19:50 | NUR ---
ANTIBODIC COMPLETED, PIC FLUSHED WITH NS, FLUSHES WELL, PT REPORTS SHE MAY GET UP TO BR, DENIES ASSIST, SIGN OTHER REMAINS AT BEDSIDE, PT APPEARS SLIGHTLY MORE COMFORTABLE.
--- NOTE | 2022-06-03 20:53 | NUR ---
PT AWAKE, ALERT, APPEARS UNCOMFORTABLE, OFFERED PAIN MED, REQUESTING ULTRAM, GIVEN PER ORDER, VS DONE, TEMP 102.9, ROOM TEMP LOWERED AND BLANKET REMOVED,FRESH WATER GIVEN. PLAN TO MONITOR, PT FEELS SOB, RR 16, OFFERED OXYGEN FOR COMFORT, PLACED ON AT 1 L/MIN PER NC, PICC LINE INTACT, SITE WITHOUT BLEEDING. ASSESSMENT COMPLETED, MOTHER TO ROOM AND WILL SPEND THE NIGHT WITH PT.
--- NOTE | 2022-06-03 22:40 | NUR ---
PT RESTING, TEMP 100.5, TYLENOL GIVEN PER ORDER, PT VOIDED 1050 ML YELLOW URINE WITH SOFT BROWN BM. IV ANTIBODICS COMPLETED AND PICC LINE FLUSHED WITH NS. PT RESTING WITH EYES CLOSED, NO COMPLAINTS, MOTHER ASLEEP ON COUCH.
--- NOTE | 2022-06-03 23:58 | NUR ---
PT ASLEEP, WITHOUT DISTRESS OR REQUEST.
--- NOTE | 2022-06-04 00:01 | NUR ---
CRITICAL LAB VALUE REPORTED PER LAB, REPORT OF BC WITH GRAM+ COCCI. PT CONTINUES ON ANTIBODICS ORDERED.
--- NOTE | 2022-06-04 02:05 | NUR ---
PT AWAKEN FOR VS, AFEBRILE, GOWN AND LINEN DAMP, LINEN AND GOWN CHANGED, PT VOIDED 1300 ML LIGHT YELLOW URINE, ASSESSMENT COMPLETED, PT DECLINES OXYGEN AT THIS TIME, MOIST PRODUCTIVE COUGH, PRODUCTIVE OF DARK PINK SPUTUM, PT REQUESTING ROBITUSSIN, GIVEN PER ORDER, PT MEDICATED WITH TYLENOL FOR 3/10 PAIN AND TEMP CONTROL, SODA GIVEN PER REQUEST, PT RESTING WITH EYES CLOSED.
--- NOTE | 2022-06-04 04:25 | NUR ---
PT APPEARS TO SLEEP, WITH EYES CLOSED, RESP EVEN AND REGULAR.
--- NOTE | 2022-06-04 06:00 | NUR ---
PT AWAKEN, ALERT, COUGH CONTS PRODUCTIVE PINK TO RED SPUTUM, AM LABS DRAWN PER PICC PER PROTOCAL, SITE INTACT.
--- NOTE | 2022-06-04 06:22 | NUR ---
VS NOTED, PT AFEBRILE, MEDICATED WITH ULTRAM AND TYLENOL PER C/O PAIN, IV ANTIBODIC INFUSING WELL, PICC SITE WNL, PT COUGHING, PRODUCTIVE OF PINK-RED SPUTUM.
--- NOTE | 2022-06-04 06:59 | NUR ---
PT AWAKEN FOR RT MEDS, MOIST COUGH AT TIMES, PRODUCTIVE DARK REDDISH PINK THICK MUCOUS, PT RESTING WITH EYES CLOSED
--- NOTE | 2022-06-04 07:00 | NUR ---
REPORT FROM IMELDA RN, PT RESTING IN BED, LABS AND MEDS REVIEWED - PT MOM IS HERE AND HER ANXIETY IS DECREASED NOW PER REPORT. RN CONT. TO FOLLOW PT.
--- NOTE | 2022-06-04 08:45 | NUR ---
THIS MORNING I HELPED TIA TAKE A CUP OF COFFEE IN TO HER MOM AND PATIENT. ALSO PUT THE CREAMS AND SUGARS IN HER COFFEE. CHANGED THE BLANKETS ON HER CHAIR. PATIENT IS NOW SITTING UP IN HER CHAIR. BED LINENS ARE CHANGED. ALSO SHE IS SET UP FOR A SHOWER AFTER BREAKFAST. SHE DIDN'T LIKE WHAT SHE HAD FOR BREAKFAST. SO I ORDERED HER SOME CREAM OF WHEAT THAT IS WHAT SHE WANTED.
--- NOTE | 2022-06-04 10:04 | NUR ---
PT SET UP FOR SHOWER - IV WRAPPED R ARM. SHOWER CH.
--- NOTE | 2022-06-04 10:30 | NUR ---
PATIENT TOOK A SHOWER AFTER BREAKFAST. PATIENT NEEDED HELP DO TO FEELING WEAK. PATIENT DID A HIBACLEMS SHOWER. ALSO WASHED HER HAIR AND PUT CONDITIONER IN HER HAIR ALSO. GOT HER GOWN ON THAN I BLOWED DRIED HER HAIR. AND BRAIDED HER HAIR. THAN BEFORE WE WALKED OUT OF THE BATHROOM SHE WANTED TO PUT ON HER ROBE. PATIENT IS SITTING UP IN HER CHAIR VISITING FAMILY.
--- NOTE | 2022-06-04 11:45 | NUR ---
Spoke with Claire. She is sob when visiting. She denies need, but then requests a cane. I will speak with PT and see if this is their recommendation. Family in room with pt.
--- NOTE | 2022-06-04 12:00 | NUR ---
Spoke with Agata EREVES, she states PT/OT has been stopped. She feels this would be ok for pt to have a cane if she would like. I will notify Dr. Bauer.
--- NOTE | 2022-06-04 12:27 | NUR ---
RN IN FOR PT CARE, PO ULTRAM GIVEN - ODOR OF GENIEJAUNA NOTED - EDUCATED PT VISITOR AND PT THAT IT WAS NOT OK ON HOSPITAL PROPERTY AND OR TO BE IMPAIRED - UNDERSTOOD - PT DENIED USE. MG. IV STARTED ON PUMP.
--- NOTE | 2022-06-04 13:41 | NUR ---
PT UP IN ON PHONE - REPORTS SOB IMPROVED, PAIN 4/10 GENERALIZED BACK CHEST FROM COUGH.
--- NOTE | 2022-06-04 14:12 | NUR ---
PT'S MOTHER AND BROTHER ARRIVED AND HAS LIFTED PTS' SPIRITS. FEELING A LITTLE BETTER. PICC LINE IN, HAD GOOD VISIT. PT AND FAMILY REQUESTED PRAYER, WILL FOLLOW
--- NOTE | 2022-06-04 15:04 | NUR ---
PT UP IN , FAMILY IN ROOM, DR DOMINGUEZ IN ROOM FOR ASSESSMENT.
--- NOTE | 2022-06-04 15:49 | NUR ---
WENT IN TO CHECK ON PATIENT. ALSO TO SEE IF SHE ORDERED HER DINNER. AND SHE DID.
--- NOTE | 2022-06-04 17:25 | NUR ---
BLOOD CULTURES X2 SITES DRAWN FOR LAB BY RN, PT ANXIOUS - 1 SITE PICC LINE 2ND SITE LEFT AC. PT UP IN FOR MEAL - FAMILY IN ROOM, MEDS FOR PAIN/ANXIETY GIVEN AND HEAT PACK FOR BACK. SOB SITTING UP WITH ANXIETY 98% ROOM AIR WITH QUICK RESP. 28 RESP. 2L NC FOR COMFORT AND REASUREANCE - 99% OXYGEN.
--- NOTE | 2022-06-04 18:29 | NUR ---
Notified by Ev Groves RN/clinical nursing instructor, patient is having reaction to antibiotic. Itching and redness noted. Instructor stopped antibiotic. Dr. Bauer notified. On his way to unit to assess patient. Patient denies shortness of breath, states she is "just itchy" when this nurse in to assess her.
--- NOTE | 2022-06-04 18:37 | NUR ---
AND RN IN ROOM FOR PT ASSESSMENT AFTER RED MAN REACATION DURING VANCO INFUSION - IV STOPED VITALS WNL - ONLY ITCHING 4/10 AROUND EARS - PLAN TO CHANGE ABX. AND STOP ANOTHER DRUG. PT AGREES. ITCHING IS IMPROVING WE ARE IN ROOM AND PT REPORTS SHE IS BREATHING WELL ON ROOM AIR SATS 99% - VISITING WITH FAMILY AND IN [employer] - JUST RED AROUND EARS AND NECK.
--- NOTE | 2022-06-04 19:05 | NUR ---
REPORT RECEIVED FROM SEEMA WAYNE. PT SITTING UP IN CHAIR. PT REQUESTING HOT PACK. THO CORBIN ASKED TO PROVIDED PT HOT PACK. PT REPROTS NO OTHER NEEDS AT THIS TIME. CALL LIGHT IN REACH. FAMILY IN ROOM.
--- NOTE | 2022-06-04 20:57 | NUR ---
IN TO ADMINISTER MEDICATIONS, SEE MAR. PT TAKES PO MEDICATIONS WITH NO ISSUES. VITALS AND I&Os COMPLETE. ASSESSMENT COMPLETE. PT REPORTING PAIN 5/10 IN BACK AND SIDES. TEMPERATURE OF 100.9 RECORDED. PRN TYLENOL ADMINISTERED, SEE MAR. LUNG SOUNDS COARSE. BOWEL TONES ACTIVE. PT REQUESTING ICE WATER AND SPRITE. ICE WATER AND SPRITE PROVIDED. NO OTHER NEEDS REPORTED AT THIS TIME. CALL LIGHT IN REACH.
--- NOTE | 2022-06-04 21:06 | NUR ---
THIS RN TALKED WITH DR. DOMINGUEZ REGARDING IF HE WOULD LIKE THE PT TO BE NPO THROUGH THE NIGHT FOR THE PROCEDURE THAT IS PLANNED FOR TOMORROW. NO NEW ORDERS RECEIVED. PER DR. DOMINGUEZ PT DOES NOT NEED TO BE NPO FOR PROCEDURE.
--- NOTE | 2022-06-04 21:09 | NUR ---
PT USES IS 5 TIMES UP TO 750 EACH TIME. TEMPERATURE CHECKED AFTER IS USE. TEMPERATURE 100.3. PT REPORTS NO OTHER NEEDS AT THIS TIME. CALL LIGHT IN REACH.
--- NOTE | 2022-06-04 21:56 | NUR ---
made aware by primary angelica brown of pt's temp-100.3 (following use of IS). per primary rn kevin, pt given prn tylenol. temp below md notification parameters and pt has had recorded temps within the last 24hrs. recent blood cultures obtained on dayshift at approx [phone]. will continue to monitor pt, updated bottle house cleaners supervisor sindy and agrees with poc.
--- NOTE | 2022-06-04 22:31 | NUR ---
IN ROOM TO ANSWER CALL LIGHT. PT REPORTING "SOMETHING IS BEEPING" IV PUMP ALARMING, RESOLVED. IV PLUGGED INTO WALL BATTERY IS LOW. PT REQUESTING MORE SPRITE, SPRITE PROVIDED. PT REPORTS NO OTHER NEEDS AT THIS TIME. CALL LIGHT IN REACH.
--- NOTE | 2022-06-05 01:39 | NUR ---
IN TO ROUND ON PT. VITALS AND I&Os COMPLETE. TEMPERATURE OF 100.0. PT REPORTING PAIN 6/10 IN BACK AND SIDES. PRN TYLENOL ADMINISTERED, SEE MAR. COUGH MEDICAITON ADMINISTERED, SEE MAR. PT USES IS 5 TIMES UP TO 500 EACH TIME. TEMPERATURE RECHECKED AND REMAINS 100.0 ASSESSMENT COMPLETE. LUNG SOUNDS COARSE THROUGHOUT. HEART RATE TACHYCARDIC. BOWEL TONES ACTIVE. EDEMA NOTED TO BLE PT REQUESTING SPRITE, SPRITE PROVIDED. PT REQUESTING GRANT ETHIOPIAN ICE, PROVIDED. PT REPORTS NO OTHER NEEDS AT THIS TIME. CALL LIGHT IN REACH.
--- NOTE | 2022-06-05 01:57 | NUR ---
PRN PAIN MEDICAITON ADMINISTERED PER PT REQUEST, SEE MAR. PT TAKES PO MEDICATION WITH NO ISSUES. PT REPORTS NO OTHER NEEDS AT THIS TIME. CALL LIGHT IN REACH.
--- NOTE | 2022-06-05 03:04 | NUR ---
IN TO RECHECK TEMPERATURE. TEMP OF 99.3. ENCOURAGED PT TO USE IS. PT DECLINES. EDUCATED PT ON IS USE. PT STATES "I JUST FELL ASLEEP, I WANT TO GO BACK TO SLEEP." PT RESTING IN BED. RR EVEN AND UNLABORED. PT REPORTS NO OTHER NEEDS AT THIS TIME. CALL LIGHT IN REACH.
--- NOTE | 2022-06-05 04:16 | NUR ---
IN TO ROUND ON PT. PT SITTING UP IN BED. PT REPORTING PAIN 2/10 AND DENIES ANY PAIN MEDICATION AT THIS TIME. PT DENIES ANY OTHER NEEDS AT THIS TIME. CALL LIGHT IN REACH.
--- NOTE | 2022-06-05 05:52 | NUR ---
IN WITH LAB TO DRAW LABS FROM PICC. PICC FLUSHED WITH 10ML NS, 10ML OF BLOOD WASTED. 8ML OF BLOOD DRAWN FOR LAB. FLUSHED WITH 20ML NS PULSATILE FLUSH. PT SL AT THIS TIME. I&Os AND VITALS COMPLETE. PT REPORTS NO OTHER NEEDS AT THIS TIME. CALL LIGHT IN REACH.
--- NOTE | 2022-06-05 06:40 | NUR ---
dr marley updated on trending temps during the shift and preliminary report for blood culture on 06/01/22 showed staphylococcus aureus, md already aware. no new orders received at this time.
--- NOTE | 2022-06-05 09:00 | NUR ---
ADMIN ULTRAM 50MG PO AT THIS TIME PER PT REQUEST FOR GENERALIZED PAIN.
--- NOTE | 2022-06-05 09:07 | NUR ---
ADMIN TYLENOL 650MG PO FOR PAIN/FEVER. TEMP 100.1F.
--- NOTE | 2022-06-05 10:58 | NUR ---
WE CHANGED HER BED LINENS. PATIENT WANTED TO GET UP TO HER CHAIR FOR BREAKFAST THIS MORNING.
--- NOTE | 2022-06-05 11:05 | NUR ---
No change in plan for CM at this time.
--- NOTE | 2022-06-05 11:31 | NUR ---
PATIENT SITTING UP IN CHAIR, NO ACUTE DISTRESS. PATIENT REPORTS SHE IS TIRED TODAY. ROBITUSSIN 10ML PO ADMIN PER PT REQUEST FOR COUGH. PATIENT IS ON ROOM AIR, RESPIRATIONS EVEN AND NON LABORED. PATIENT UPDATED WITH PLAN OF CARE AT THIS TIME. ATIVAN PO 2MG ADMIN PER DOC ORDER. PATIENT'S MOMTHER AT BEDSIDE VISITING WITH PATIENT.
--- NOTE | 2022-06-05 12:09 | NUR ---
PT ALERT, ORIENTED SITTTING IN CHAIR VISITING WITH HER MOTHER BANDAR. DR DOMINGUEZ IS TO COME FOR A CONSULT. HAD PRAYER, WILL FOLLOW
--- NOTE | 2022-06-05 14:44 | NUR ---
AFTER LUNCH PATIENT WAS BACK IN BED.
--- NOTE | 2022-06-05 15:00 | NUR ---
DR. DOMINGUEZ AT BEDSIDE FOR THOROCENTESIS. PATIENT TOLERATED PROCEDURE WELL. PLEURAL FLUIDS SENT TO LAB. VITAL SIGNS STABLE. SP02 98% ON ROOM AIR. PATIENT RESTING IN BED AT THIS TIME. FRESH WATER PROVIDED.
--- NOTE | 2022-06-05 15:24 | NUR ---
RIGHT PLEURAL FLUID OBTAINED FROM DR. DOMINGUEZ AND SENT OFF TO LAB. PT LABEL INTACT ON CONTAINER PER PROTOCOL.
--- NOTE | 2022-06-05 15:24 | NUR ---
PATIENT NOW ON ZYVOX. TYRAMINE RESTRICTED DIET IS NOW IN THE MEAL IQ. THE ONLY FOODS THIS AFFECTS IS TERIYAKI CHICKEN OR THE [employer] ([employer]) GRAIN BOWL DUE TO THEY BOTH CONTAIN SOY SAUCE.
--- NOTE | 2022-06-05 18:20 | NUR ---
TYLENOL 650MG PO ADMIN AT THIS TIME FOR TEMP 100.4. PATIENT ENCOURAGED TO USE ISS AND AMBULATE IN ROOM. FAMILY REMAINS AT BEDSIDE. CALL LIGHT WITHIN REACH.
--- NOTE | 2022-06-05 19:05 | NUR ---
REPORT RECEIVED FROM SEEMA LOREDO. PT SITTING UP IN BED AND RESPONODS WHEN ADDRESSED. PT REQUESTING GERTRUDE GRIER RN TO ADMINISTER. NO OTHER NEEDS FROM THIS RN AT THIS TIME.
--- NOTE | 2022-06-05 19:08 | NUR ---
ADMIN VISTARIL 25MG PO AND ROBITUSSIN 10ML PO FOR COUGH AND ANXIETY.
--- NOTE | 2022-06-05 20:58 | NUR ---
IN TO ADMINISTER MEDICATIONS, SEE MAR. PT TAKES PO MEDICATION WITH NO ISSUES. ASSESSMENT COMPLETE. LUNG SOUNDS CLEAR IN RUL AND BENNY. COARSE IN RLL AND LLL. BOWEL TONES ACTIVE. HEART RATE TACHYCARDIC. PT REPORTS PAIN 6/10 IN BACK AND SIDE. EDEMA NOTED TO BLE. PICC FLUSHES WNL AND PULLS BLOOD BACK WNL. PICC INFUSING ABX WNL. PT DENIES RESTOOM NEEDS AT THIS TIME. PT RESTING IN BED WITH EYES CLOSED. RR EVEN AND UNLABORED. PT DENIES ANY NEEDS AT THIS TIME. CALL LIGHT IN REACH.
--- NOTE | 2022-06-05 21:54 | NUR ---
THIS RN TALKED WITH DR. DELA CRUZ ASKING IF HE WOULD LIKE PT ON TELE DUE TO RISK FACTORS OF EMBOLISM. NO NEW ORDERS RECEIVED.
--- NOTE | 2022-06-05 22:02 | NUR ---
IN ROOM TO ANSWER CALL LIGHT. IV PUMP ALARMING, RESOLVED. IV ABX COMPLETE. PICC LINE FLUSHED WITH 20ML NS AND HEPARIN LOCKED, SEE MAR. BANDAIDS X2 NOTED TO RIGHT POSTERIOR RIB CAGE AREA WITH SCANT AMOUNG OF SANGUINEOUS SHADOWING NOTED. BANDAIDS D/I OTHERWISE. PT REPORTING PAIN 4/10 IN BACK AND SIDES, PRN TYLENOL ADMINISTERED, SEE MAR. TEMPERATURE RECHECKED. TEMPERATURE OF 99.8 RECORDED. PT AND MOTHER REQUESTING WATER AND ICE CHIPS. WATER AND ICE CHIPS PROVIDED. NO OTHER NEEDS REPORTED AT THIS TIME. CALL LIGHT IN REACH.
--- NOTE | 2022-06-05 22:10 | NUR ---
THIS RN NOTIFIED BY SEEMA ARMANDO THAT DR. DOMINGUEZ CALLED AND WOULD LIKE THE PT TO BE NPO AT MIDNIGHT. IN ROOM TO UPDATE PT ON POC. PT AGREEABE. PT REPORTS NO OTHER NEEDS AT THIS TIME. CALL LIGHT IN REACH. MOTHER IN ROOM.
--- NOTE | 2022-06-05 22:12 | NUR ---
DR DOMINGUEZ CALLED THIS RN STATION AND GAVE TELEPHONE ORDER TO MAKE pt NPO AT MIDNIGHT pt HAS TENATIVE CHEST TUBE PLACEMENT IN THE OR BETWEEN 1100 AND 1200 TOMORROW MORNING. MD DOMINGUEZ ALREADY AWARE OF MOST RECENT CHEST X-RAY RESULTS FOLLOWING THIS AFTERNOONS THORACENTESIS. PRIMARY RN ALEJANDRA UPDATED AND MADE AWARE.
--- NOTE | 2022-06-06 00:03 | NUR ---
IN ROOM TO REMOVE EXTRA FOOD AND WATER PT IS NPO AT MIDNIGHT. PT REPORTING PAIN 6/10 IN BACK AND SIDES. PRN MEDICATION ADMINISTERED, SEE MAR, WITH SMALL SIP OF WATER. PT REQUESTING TO USE RESTROOM. SBA FROM BED TO RESTROOM AND BACK TO BED. PT REQUESTING PILLOW UNDER BACK AND FOR STOMACH FOR COMFORT AT PT IS LAYING IN BED IN LEFT SIDE. PILLOWS PROVIDED. PT REQUESTING TISSUES, TISSUES PROVIDED. PT REPORTS NO OTHER NEEDS AT THIS TIME. CALL LIGHT IN REACH. MOTHER IN ROOM ON COUCH RESTING.
--- NOTE | 2022-06-06 04:26 | NUR ---
IN TO ANSWER CALL LIGHT. PT REPORTS "CAN I HAVE AN ICE CHIP OR SOMETHING, MY THROAT IS REALLY DRY LIKE STICKING TOGETHER" PROVIDED PT WITH A CHERYL SWAB STICK. PT DID NOT LIKE THE CHERYL FLAVOR AND STATES "THAT IS FOUL." PROVIDED PT WITH GREEN MOUTH SWAB MOISTENED WITH WATER. PT APPROVED OF SWAB MOISTENED WITH WATER. PROVIDED PT WITH SPECIMEN CUP TO PLACE LIP RING INTO PRIOR TO PROCEDURE LATER TODAY. ASSESSMENT COMPLETE. LUNG SOUNDS COARSE THROUGHOUT AND DIMINISHED IN THE RLL. BOWEL TONES ACTIVE. HEART RHYTHM REGULAR. PT REPORTING PAIN 6/10 IN BACK AND SIDES STATES IT IS "SHARP WITH COUGHING AND TALKING, DULL OTHERWISE" AND IS "CONSTANT." PT REPOSITIONED SELF IN BED. PILLOWS PLACED UNDER BACK AND LEFT SIDE PT IS RESTING ON LEFT SIDE. BANDAIDS X2 ON RIGHT POSTERIOR RIB CAGE NO CHANGE FROM PREVIOUS ASSESSMENT. SCANT AMOUNT OF SHADOWING NOTED, D/I OTHERWISE. EDEMA NOTED TO BLE. CONSENT FORM NOT SIGNED. PT HAS ADDITIONAL QUESTIONS ABOUT PROCEDURE FOR DR. DOMINGUEZ. PT REPORTS NO OTHER NEEDS AT THIS TIME. CALL LIGHT IN REACH. MOTHER IN ROOM.
--- NOTE | 2022-06-06 05:41 | NUR ---
IN TO DRAW LABS FROM PICC. PICC FLUSHED WITH 20ML OF NS. WAITED 2 MINUTES, WASTED 10ML OF BLOOD AND DIEGO 10ML OF BLOOD. PULSATILE FLUSHED WITH 20ML NS AND THEN PUT PT ON IV FLUIDS, SEE MAR. VITALS AND I&Os COMPLETE. PT TEMPERATURE OF 101.2. INSTRUCTED PT TO USE IS. PT USES IS 5 TIMES UP TO THE 500 RODRÍGUEZ. TEMPERATURE RECHECKED AND TEMPERATURE IS NOW 100.5. PT REPORTING PAIN 6/10 IN BACK AND SIDES. 0603 IN TO ADMINISTER PRN PAIN MEDICATIONS AND MORNING MEDICATIONS, SEE MAR, WITH SMALL SIPS OF WATER. PT REQUESTING PILLOW UNDER BACK TO BE ADJUSTED, PILLOW ADJUSTED. MOTHER REQUESTING COFFEE. WILL BRING COFFEE WHEN COFFEE IS BREWED AND READY. PT REPORTS NO OTHER NEEDS AT THIS TIME. CALL LIGHT IN REACH.
--- NOTE | 2022-06-06 06:44 | NUR ---
COFFEE PROVIDED TO pt's MOTHER, pt REMAINS NPO FOR PLANNED CHEST TUBE INSERTION. GENERALIZED QUESTIONS ANSWERED REGARDING CHEST TUBE INSERTION ALONG WITH WRITTEN pt EDUCATION.
--- NOTE | 2022-06-06 07:27 | NUR ---
RECEIVED REPORT FROM MARY STEPHENSON. ASSUMING CARE OF PT. PT RESTING IN BED, CALL LIGHT WITHIN REACH, BEDRAIL UP FOR SAFETY. FAMILY AT BEDSIDE.
--- NOTE | 2022-06-06 08:30 | NUR ---
MORNING MEDICATION AND ASSESSMENT COMPLETED. PT SBA TO BATHROOM AND TO CHAIR. BED LINEN CHANGED WELL GOWN CHANGED. CHLOREHEXIDINE WIPE DOWN COMPLETE. PT TOLERATED WELL. PT HAS LR @ 85/HR GOING THROUGH RIGHT PICC LINE. PT HAS STRONG HEART BEAT WITH REGULAR RHYTHM, ACTIVE BOWEL TONES, AND DIMINISHED LUNG SOUNDS IN LOWER QUADRANT WITH COURSE SOUNDS THROUGHOUT. PT SITTING IN CHAIR IN ROOM WITH CALL LIGHT WITHIN REACH.
--- NOTE | 2022-06-06 09:06 | NUR ---
PT HAS LR HANGING WITH REGULAR TUBING ON POLE AND SURGICAL CONSENT SIGNED, READY FOR OR.
--- NOTE | 2022-06-06 10:25 | NUR ---
IV MAGNESIUM DONE INFUSING; ABX NOW INFUSING. DR DOMINGUEZ AND DR DELA CRUZ BOTH IN ROOM AT THIS TIME TO DISCUSS PLAN OF CARE. PT VERBALIZED UNDERSTANDING. CALL LIGHT WITHIN REACH. NO FURTHER NEEDS AT THIS TIME.
--- NOTE | 2022-06-06 10:50 | NUR ---
BOOKER TOOK PT TO SURGERY VIA [facility].
--- NOTE | 2022-06-06 12:26 | NUR ---
PT BROUGHT BACK TO ROOM BY ANIMAL SHELTER WORKER AT 1215. PT RESTING IN BED, COMPLAINT OF PAIN IN CHEST TUBE AREA. CHEST TUBE AT 20 WITH WALL SUCTION AT 100. PT TOLERATING WELL. PT DENIES NAUSEA, ALERT AND ANSERING QUESTIONS APPROPRIATELY.
--- NOTE | 2022-06-06 12:31 | NUR ---
06/06/22 1231 Mellissa Petersen 1129 PT ARRIVED IN PACU SLEEPY WITH NO C/O'S. 1135 O2 SATS 88% ON RA. ENCOURAGED COUGH, DEEP BREATHING WITH NO SUCCESS. 02 @ 2L VIA NC PLACED. SATS INCREASED TO 98%. C/O R CHEST PAIN 11/23. 1147 TYLENOL 1GM GIVEN IV. REMINDED PT SURGERY SITE WILL BE PAINFUL, BUT PAIN MEDICATION IS INFUSING. 1200 DR AT BEDSIDE. ALL QUESTIONS ANSWERED. 1215 TO ROOM 115. REPORT GIVEN TO RN. BED PLUGGED. LE 1130 CHEST TUBE SET TO WALL SUCTION AT [address] ORDERS.
--- NOTE | 2022-06-06 14:08 | NUR ---
LE 1330 INTO ROOM, PATIENT PLACING FACIAL JEWLERY WITH MOM AT BEDSIDE. PATIENT APPEARS CALM, RATES PAIN 4/10 AT CHEST TUBE SITE. MOTHER STATES " MY DAUGHTER NEEDS SOMETHING MORE FOR PAIN, SHE NEEDS THE IV STUFF". PATIENT THEN SMILED. PLAN TO ADMINISTER MOTRIN PER JUL, THEN REASSESS. CHEST TUBE APPEARS TO BE PUTTING OUT BLOODY FLUID. PATIENT BREATHING REGULAR AND EVEN, CHEST TUBE SUCTION 20/100 CONTINIOUS. NO OTHER NEEDS AT THIST TIME.
--- NOTE | 2022-06-06 18:27 | NUR ---
PATIENT COMPLAINTS OF CHEST PAIN. PROVIDED PATIENT WITH WARM COMPRESS AND ADMINISTERED PRN MEDICATIONS PRN PER MAR. PATIENT STATED SHARP CHEST PAIN NOW GONE. PATIENT READING NOVEL IN BOOK APPEARS CALM AND COMFORTABLE.
--- NOTE | 2022-06-06 19:25 | NUR ---
ASSUMED CARE OF PT UPON RECEIVING BEDSIDE REPORT FROM DAY RN. PT AOX4, NAD, C/O PAIN, BUT STATES SHE IS ABLE TO WAIT FOR NEXT PAIN MED ADMINISTRATION TIME. PT DECLINING SCD. FAMILY MEMBER AT BEDSIDE. CT TO CONT SUCTION AT 100. [facility] PATENT CHARTED. CT SITE WNL CHARTED. WILL CONTINUE TO MONITOR AND FOLLOW POC.
--- NOTE | 2022-06-07 06:35 | NUR ---
PT WITH NO ACUTE OVERNIGHT EVENTS. PAIN CONTROL NEEDED AROUND THE CLOCK. DR. DOMINGUEZ AWARE OF PATIENT'S MUSCULOSKELETAL PAIN WITH MOVEMENT SINCE CT INSERTION. PT GIVEN HEAT PACKS AND ENCOURAGED TO MOVE SO THAT HER MUSCLES DON'T GET STIFFER AND HURT MORE. PT VSS, NAD. WILL CONTINUE TO MONITOR AND FOLLOW POC.
--- NOTE | 2022-06-07 08:16 | NUR ---
PT AWAKE IN ROOM WITH MOTHER AT BEDSIDE. FRESH COFFEE GIVEN TO BOTH. WHITE BOARD UPDATED. CALL LIGHT IN REACH. NO FURTHER NEEDS AT THIS TIME.
--- NOTE | 2022-06-07 11:02 | NUR ---
0830 PATIENT UP TO BATHROOM, VOIDED WELL. UP TO RECLINER. ADMINISTERED MORNING MEDICATIONS. 0930 PATIENT UP AMBULATING IN HALLS, WITH REST PERIODS PATIENT ABLE TO COMPLETE ONE LAP. PATIENT STATES " I DON'T WANT TO BE IN THE BED AND I DON'T WANT TO SIT IN THE CHAIR" PATIENT APPEARS PAINFUL, GRIMACE TO FACE. [address] PAULINO ON PATIENT. CONCERNS WITH PAIN CONTROL. NEW ORDERES FOR IV DILAUDID FOR BREAKTHRU PAIN, AND FLEXIRAL. DR. PAULINO REQUESTED SUCTION TO CHEST TUBE TITRATED DOWN. TITRATED SUCTION FROM [address] PAULINO INTO ROOM TO SEE PATIENT. UPDATED FAMILY. ANTIBIOTICS INFUSING. NO THER NEEDS AT THIS TIME.
--- NOTE | 2022-06-07 11:44 | NUR ---
ADMINISTERED IV DIALUDID FOR BREAKTHROUGH PAIN, PATIENT NOW ABLE TO REST BACK IN RECLINER, APPEARS CALM AND RELAXED. PATIENT STATES " MY THAT SHARP ACHE IS GONE" RATES PAIN 1/10 ON PAIN SCALE. NEW ORDER FOR IV DIALUDID 1MG Q3HR PRN NEEDED FOR BREATHROUGH PAIN. PO DILAUDID 4MG Q3HR PRN FOR BREAKTHROUGH PAIN IS DC'D.
--- NOTE | 2022-06-07 12:35 | NUR ---
PATIENT RESTING BACK IN RECLINER, EATING LUNCH. REPORTS PAIN WELL CONTROLLED. CHEST TUBE TO SUCTION AT 20/100. PATIENT HAS FAMILY AND FRIENDS AT BEDSIDE. NO OTHER NEEDS AT THIS TIME.
--- NOTE | 2022-06-07 15:08 | NUR ---
PATIENT AMBULATED DOWN TO FRONT LOBBY, TOLERATED WELL WITH FEW REST PERIODS. VISITED A FRIEND AND THEN PROVIDED WHEELCHAIR RIDE BACK TO ROOM. PATIENT COMPLAINTS OF SHARP MUSCOSKELETAL PAIN, ADMINISTERED MEDICATIONS PER MAR. PATIENT NOTIFIED OF DEVELOPING RAISED RED BUMPS TO BILATERAL LOWER EXTREMITIES, ESPECIALLY WHERE SOCKS TOUCH SKIN.
--- NOTE | 2022-06-07 18:07 | NUR ---
PATIENT UP TO BATHROOM, VOIDED AND HAD BM. PAIN WELL CONTROLLED 3/10 ON PAIN SCALE. PATIENT THEN TO BED. VS WNL. NOTED WHAT APPEARS TO BE A RASH HAS SPREAD AND WORSENED. PATIENT COMPLAINS OF ITCHING, BUT TOLERABLE. BLOOD FOR CBC SENT TO LAB.
--- NOTE | 2022-06-07 19:31 | NUR ---
ASSUMED CARE OF PATIENT UPON RECEIVING BEDSIDE SHIFT REPORT FROM DAY RN. PT. SITTING UP IN BED, AOX4, NAD, NO C/O. WILL CONTINUE TO MONITOR AND FOLLOW POC.
--- NOTE | 2022-06-07 22:12 | NUR ---
PT REQUESTS MED FOR URTICARIA/PRURITUS TO BLE, UNRELIEVED BY ORDERED MEDS. NEW ORDER REC'D.
--- NOTE | 2022-06-08 00:37 | NUR ---
IV ANTIBIOTIC COMPLETE. PICC LINE SL WNL. pt COMPLAINS OF 6/10 PAIN WITH COUGHING AT CHEST TUBE SITE. 2L OXYGEN BY NC APPLIED PER MD ORDERS. PRN PAIN AND COUGH MEDICATION ADMINISTERED. CALL LIGHT IN REACH. NO ADDITIONAL REQUESTS.
--- NOTE | 2022-06-08 07:10 | NUR ---
THE NIGHT PNEUMATIC TUBE REPAIRER AND I TOOK PATIENT TO THE BATHROOM. PATIENT SITTING UP IN HER CHAIR. BED LINENS CHANGED. GOT HER SOME WARM BLANKETS. MOM IN ROOM. ALSO GOT HER AND HER MOM A CUP OF COFFEE. SHE LIKES THREE CREAMS AND THREE SUGARS.
--- NOTE | 2022-06-08 07:15 | NUR ---
report from lacy dominguez, pt up in , mom here with pt, picc line capped. [employer]od[employer] diver in changing linen - white board updated.
--- NOTE | 2022-06-08 08:33 | NUR ---
PT UP IN , CHEST TUBE TO SUCTION 20 CM, OLD DRAINAGE ON RIGHT CHEST TUBE - SECURE TO CHEST. IV ABX STARTED, PO BENADRYL GIVEN FOR RASH ON BACK, PT EATING MEAL WITH MOM IN ROOM. COUGH SYRUP GIVEN FOR PRODUCTIVE COUGH.
--- NOTE | 2022-06-08 10:14 | NUR ---
AROUND 1OAM THIS MORNING PATIENT WANTED ANOTHER CUP OF COFFEE. SO I WENT AND GOT HER ANOTHER CUP OF COFFEE. PATIENT IS SITTING UP IN HER CHAIR.
--- NOTE | 2022-06-08 11:26 | NUR ---
pt requested iv pain meds for chest tube pain in the right side - dr. bojorquez here agrees - pt up in .
--- NOTE | 2022-06-08 13:50 | NUR ---
Spoke with Claire. Discussed 929 report, Dr. Bauer indicated she will need 6 weeks of IV antibiotics. Pt would like to come in to [facility] for antibiotics if possible. I will pass on to hospitalist.
--- NOTE | 2022-06-08 14:25 | NUR ---
PT SITTING IN CHAIR, TV ON AND MOTHER HAS LEFT TO FRESHEN UP. PT IS EXPERIENCING RASH, SUSPECTED FROM MEDS. SEEMA WAYNE IS FOLLOWING. PT FEELS BETTER, TUBE DRAINING. GAVE BLESSING AND WILL FOLLOW
--- NOTE | 2022-06-08 14:38 | NUR ---
pt up in , tearful about plan discussed with dr marley to transfer out to higher level of care. anxious - po ultram and vistril given - po benadryl for itching on rash - legs and torso - after flexeril med given yesterday. po cough syrup given for productive cough with bloody sputum. pt mom and boyfriend in room, discussed that at this time we do not have a location/dr. or bed - but transfer is in process. pt requesting to see her children before she leaves - and rn will notify cigar making supervisor of request.
--- NOTE | 2022-06-08 15:24 | NUR ---
pt continues to be anxious and in pain - called for pain meds, sitting up in with call light in reach.
--- NOTE | 2022-06-08 17:55 | NUR ---
dr olmos in to see pt, keep chest tube overnight - possibly remove tomorrow. continue to seek transfer per primary dr. edmonds. if [facility] ct will go with her. pt up in ch visiting family - c/o itching - meds are not due yet - pt declined more topical meds - said will focus on distraction.
--- NOTE | 2022-06-08 18:59 | NUR ---
pt in ch, not time for benadryl yet - ble with increasing uticaria - hives/welts increasing inspite of cream and oral benadryl - continues up pt back as well
--- NOTE | 2022-06-08 19:15 | NUR ---
ASSUMED CARE OF PATIENT UPON RECEIVING BEDSIDE HANDOFF REPORT FROM DAY RN. PT UP TO CHAIR, C/O 02/23 PAIN. THIS RN TO ROOM. MEDICATED PER JUL. WILL CONTINUE TO MONITOR AND FOLLOW POC.
--- NOTE | 2022-06-08 20:20 | NUR ---
pt UP IN CHAIR. VSS. LEGS ELEVATED IN CHAIR, 2 PILLOWS UNDER LEGS, 2+ EDEMA BILATERALLY. pt COMPLAINS OF DISCOMFORT IN LEGS, RASH NOTED. PRIMARY RN MEDICATING pt. ICE PACKS APPLIED TO LEGS FOR COMFORT. CHEST TUBE IN PLACE, CALL LIGHT AND PERSONAL SUPPLIES IN REACH.
--- NOTE | 2022-06-08 22:15 | NUR ---
PT COMPLAIN OF WORSENING PRURITIS TO BLE RASH/HIVES. SAME HAS SPREAD TO TRUNK. PHYSICIAN NOTIFIED.
--- NOTE | 2022-06-08 22:25 | NUR ---
ASSISTED PATIENT FROM CHAIR TO BED. CHEST TUBE IN PLACED. WARM BLANKET AND WARM PACK PROVIDED. PATIENT'S MOM IN THE ROOM. SIDE TABLE, ORAL SUCTION AND CALL LIGHT IN PATIENT'S REACH.
--- NOTE | 2022-06-09 06:55 | NUR ---
PT CONTINUES WITH CONTINUOUS PAIN. CURRENT REGIMEN RELIEVES HER PAIN CONSIDERABLY, BUT NOT COMPLETELY. EDUCATED PATIENT THAT GIVEN HER CT, SHE WILL POSSIBLY NOT EXPERIENCE COMPLETE RELIEF, BUT SHOULD NOT BE INTOLERABLE. UTILIZED NON-PHARMACOLOGIC MEASURES FOR PAIN MGMT, INCLUDING THERAPEUTIC COMMUNICATION, APPLIED HEAT, REPOSITIONING, AND BREATHING TECHNIQUES. PT VERBALIZES UNDERSTANDING. WILL CONTINUE TO MONITOR AND FOLLOW POC UNTIL BEDSIDE HANDOFF REPORT TO DAY RN.
--- NOTE | 2022-06-09 07:05 | NUR ---
report from Kristal dominguez, pt in bed - legs elevated with swelling and hives from allergy reaction on wednesday. benadryl and hydrocortisone treatment in place. pt mother in room and call light in reach.
--- NOTE | 2022-06-09 08:22 | NUR ---
hydrocortisone cream applied to swollen legs and pt thighs. rash no change, warm with itching. skin intact. pt c/o pain at chest tube unchanged - medicated po. water seal to suction - no movement and very minimal drainage out of chest tube. site r chest secure - no sounds noted. pt anxious and given meds - asks about transfer and when dr will be in. advised dr is doing rounds and we don't have a reciving facility/dr as of this time. will keep updated.
--- NOTE | 2022-06-09 12:30 | NUR ---
Notified by Dr. Titus they will be transfering this pt to a higher level of care. Per Information Technology Instructor she is calling for bed availability.
--- NOTE | 2022-06-09 13:24 | NUR ---
PT SLEEPING IN CHAIR-DID NOT DISTURB. CONNECTED WITH PTS' MOTHER IN [place]-SHE IS SLIPPING AWAY FOR A BREAK. WILL FOLLOW
--- NOTE | 2022-06-09 14:14 | NUR ---
patient given 600mg ibuprofen and 50 mg ultram for 7/10 right sided pain.
--- NOTE | 2022-06-09 17:49 | NUR ---
1140 - SPOKE WITH WIRE BORDER ASSEMBLER WHO IS REQUESTING CALLS BE MADE IN AN ATTEMPT TO TRANSFER PT WITH [facility] FOR RECOMMENDED BILAT PIGTAIL CATHETER PLACEMENT FOR LOCULATIONS OF LUNGS WITH TPA INFUSION. 1157 - CONTACTED [facility], NO BEDSPACE AVAILABILITY. 1157 - CONTACTED [facility]. WILL CALL BACK WITH ANY POTENTIAL PLACEMENT OPENINGS. 1203 - CONTACTED [facility]. WILL CHECK WITH IR AND HOSPITALIST AND CALL BACK. IMAGES PUSHED. FACE SHEET FAXED. SPOKE WITH NANETTE. 1237 - [facility]. NO BED SPACE AT THIS TIME. 1240 - CONTACTED OR TRANSFER CENTER. SPOKE WITH BRIGIDO. 1250 - CALL BACK FROM BRIG[facility]O WHO IS REQUESTING CONSULT WITH DR CRUZ. HOSPITALIST NUMBER PROVIDED. NO ACCEPTANCE YET, BUT WAS ABLE TO CONSULT WITH HOSPITALIST. 1547 - CALL BACK FROM SUDHIR AT [facility] TRANSFER [facility]. IN [place] TO ACCEPT, BUT DECLINED DUE TO NOT HAVING CARDIOTHORACIC SURGERY AVAILABLE AT ALL TIMES. THIS IS INCLUSIVE TO [facility] AND [facility] ALSO. AWARE. 8360 - CALL BACK FROM BRIGIDO WHO REPORTS SHE IS CONTINUING TO HAVE ISSUE WITH FINDING BOTH IR AND ACCEPTING CARDIOTHORACIC SURGERON. REPORTS SHE WILL CONTINUE TO MAKE CONTACTS ON OUR BEHALF.
--- NOTE | 2022-06-09 17:54 | NUR ---
UPDATE WITH CLICKING MACHINE OPERATOR AND DR CRUZ - TRANSFER CENTER STILL WORKING ON FINDING AN ACCEPTING DR/BED FOR PT TO TRANSFER TO WITH [facility]. PT CURRENTLY UP IN FOR DINNER - LE EDEMA IS GREATER TODAY INSPITE OF FEET ELEVATED IN BED FOR MOST OF THE DAY. PT REPORTS INCREASED ANXIETY AND PAIN WITH CHEST TUBE. RN OBSERVES CHEST TUBE WNL - RISE AND FALL OF DEVICE WITH DEEP BREATH AND NO AIR LEAKS. SITE WNL UNCHANGED. 20 CM AND TO WALL SUCTION. 15 ML OF BLOODY FLUID NOTED TODAY FROM CT.
--- NOTE | 2022-06-09 19:00 | NUR ---
ASSUMED CARE OF PATIENT UPON RECEIVING BEDSIDE SHIFT REPORT FROM DAY NURSE. PT AOX4, NAD, NO C/O. PT SITTING UP IN BED. WILL CONTINUE TO MONITOR AND FOLLOW POC.
--- NOTE | 2022-06-09 19:07 | NUR ---
removed chest tube wnl - pt happy - reports pain improved.
[2022-06-09] MEDS ORDERED: LINEZOLID600 MG/300 IV (19:59)
[2022-06-09] MEDS ORDERED: ENOXAPARIN100 MG/1 M SUB-Q (19:59)
[2022-06-09] MEDS ORDERED: DIPHENHYDRAMINE50 M1 PO (19:59)
[2022-06-09] MEDS ORDERED: CELECOXIB200 MG PO (20:00)
[2022-06-09] MEDS ORDERED: HYDROMORPHO1 MG/1 M9 IV (20:00)
[2022-06-09] MEDS ORDERED: TRAMADOL HCL50 MG PO (20:00)
[2022-06-09] MEDS ORDERED: ACETAMINOPHEN500 MG PO (20:00)
[2022-06-09] MEDS ORDERED: HYDROCORTISO453.6 GM TOP (20:01)
[2022-06-09] MEDS ORDERED: SUCRALFATE1 GM PO (20:01)
[2022-06-09] MEDS ORDERED: PANTOPRAZOLE SO40 MG PO (20:01)
--- NOTE | 2022-06-09 20:07 | NUR ---
PHONE CALL TO [facility], NO [facility] AVAILABLE. pt UPDATED, CALLING FAMILY TO PURCHASE [facility]. CONSENT FOR TRANSFER SIGNED BY PATIENT, WITNESSED BY THIS RN.
--- NOTE | 2022-06-09 20:09 | NUR ---
CALL TO [facility], THEY ARE CHECKING WEATHER, IF WEATHER GOOD THEN ETA 2032 TO TEACHER EDUCATION DIRECTOR PATIENT.
--- NOTE | 2022-06-09 20:18 | NUR ---
SHELLY FROM [facility] CALLS BACK, [facility] UNABLE TO FLY, ON LIST FOR FIXED WING TRANSPORT
--- NOTE | 2022-06-09 20:22 | NUR ---
PT. HAS BEEN ACCEPTED FOR TRANSFER TO [facility] IN [facility]. PT. APPLYING FOR [facility] INSURANCE IN ANTICIPATION OF TRANSFER BY AIR. VSS. WILL CONTINUE TO MONITOR AND FOLLOW POC.
--- NOTE | 2022-06-09 21:34 | NUR ---
SHELLY FROM [facility] CALLS, FIXED WING TO ARRIVE IN 63 MINUTES TO AIRPORT - LOCAL [facility]W TO ARRIVE IN 30 MINS TO PACKAGE PATIENT.
--- NOTE | 2022-06-09 21:52 | NUR ---
CALL LIGHT ANSWERED. IV ANTIBIOTIC COMPLETE. PICC LINE HEPARIN LOCKED WNL, BRISK BLOOD RETURN. CALL LIGHT IN REACH. pt UPDATED ON TRANSFER STATUS. PRIMARY NURSE NOTIFIED [facility] SHOULD BE TO HOSPITAL EST. 30 MINS.
--- NOTE | 2022-06-09 22:58 | NUR ---
CALLED REPORT TO REBA, NURSE AT [facility].
== END 2022-06-09 22:40 | disposition short-term general hospital (02) | DRG 871 ==
LOC: ED 08:56 → MS 12:11
PROVIDERS: Internal Medicine; ADMIT Internal Medicine; ATTEND Internal Medicine
PROC: 30233N1 Transfusion of Nonautologous Red Blood Cells into Peripheral Vein, Percutaneous Approach (ICD-10-PCS; 2022-06-03)
PROC: 02HV33Z Insertion of Infusion Device into Superior Vena Cava, Percutaneous Approach (ICD-10-PCS; 2022-06-03)
PROC: 3E03329 Introduction of Other Anti-infective into Peripheral Vein, Percutaneous Approach (ICD-10-PCS; principal; 2022-06-03 11:30)
PROC: 0W9930Z Drainage of Right Pleural Cavity with Drainage Device, Percutaneous Approach (ICD-10-PCS; 2022-06-05)
PROC: 0W990ZZ Drainage of Right Pleural Cavity, Open Approach (ICD-10-PCS; 2022-06-06)
DX: A41.01 Sepsis due to Methicillin susceptible Staphylococcus aureus (principal); I26.99 Other pulmonary embolism without acute cor pulmonale; I33.0 Acute and subacute infective endocarditis; J18.9 Pneumonia, unspecified organism; E87.1 Hypo-osmolality and hyponatremia; Z20.822 Contact with and (suspected) exposure to COVID-19; E87.6 Hypokalemia; N92.0 Excessive and frequent menstruation with regular cycle; F41.8 Other specified anxiety disorders; K21.00 Gastro-esophageal reflux disease with esophagitis, without bleeding; D64.9 Anemia, unspecified; Z98.890 Other specified postprocedural states; Z98.891 History of uterine scar from previous surgery
CPT/HCPCS: 36415; 36569; 71045; 71046; 71260; 74177; 76830; 76856; 80048; 80053; 81001; 83605; 83735; 84703; 85007; 85025; 85060; 85610; 85730; 86140; 86850; 86900; 86901; 86922; 87040; 87070; 87088; 87186; 87205; 87502; 93005; 93010; 93306; 93308; 94760; 94762; 97110; 97116; 97161; 97166; 97530; 97535; A9270; A9270-GY; C1751; C9803; J0131; J0456; J0696; J1170; J1650; J1885; J1940; J2020; J2405; J2700; J2704; J3010; J3370; J3475; J3480; J7030; J7060; J7121; P9016; Q0163; Q0177; Q9967; U0003

== ENCOUNTER 2022-07-08 16:39 | Emergency (ER) | payer OTHER ==
[~2022-07-08] VITALS: Ht 165.1 cm; Wt 65.8 kg
[~2022-07-08 16:39] MED LIST changes: +ACETAMINOPHEN500 MG PO; +CELECOXIB200 MG PO; +DICYCLOMINE HCL20 MG PO; +DIPHENHYDRAMINE50 M1 PO; +ELIQUIS5 MG PO; +ENOXAPARIN100 MG/1 M SUB-Q; +HYDROCORTISO453.6 GM TOP; +HYDROMORPHO1 MG/1 M9 IV; +HYDROXYZINE PAM50 MG PO; +IBU-200200 MG PO; +LEVOFLOXACIN750 MG PO; +LINEZOLID600 MG/300 IV; +ONDANSETRON ODT4 MG PO; +PANTOPRAZOLE SO40 MG PO; +RIFAMPIN300 MG PO; +SUCRALFATE1 GM PO; +TRAMADOL HCL50 MG PO
--- OUTSIDE RECORDS SUMMARY | 2022-07-08 16:48 | XMS ---
PreManage Notification: MÓNICA WILCOX Security Foreign Food Cook Specialty Events No recent Security Events currently on file CRITERIA MET - [facility] - 2 Visits in 30 Days CARE PROVIDERS -[place]- Dentist: Business Intelligence Architect [facility] PHONE: [phone] DAYANARA DELGADO Physician Camera Repair Technician 12/22/2018-Current PHONE: Unknown [place] has no Care Guidelines for this patient. Yana VISIT COUNT (12 MO.) [address] [place] [address] TOTAL 3 NOTE: Visits indicate total known visits. ED/UCC VISIT TRACKING (12 MO.) 07/08/2022 16:40 [facility] [place] TYPE: Emergency COMPLAINT: - FALL 06/19/2022 14:32 [facility] [place] TYPE: Emergency COMPLAINT: - ABD PAIN, VOMITING DIAGNOSES: - Other buttermaker helper (current) drug therapy - Toxic gastroenteritis and colitis - Unspecified abdominal pain - intermediate teacher (current) use of anticoagulants - Nicotine dependence, unspecified, uncomplicated - Allergy status to other drugs, medicaments and biological substances - Adverse effect of unspecified systemic antibiotic, initial encounter - Allergy status to other antibiotic agents 05/27/2022 08:57 [facility] [place] TYPE: Emergency COMPLAINT: - EXTREME SICK INPATIENT VISIT TRACKING (12 MO.) 06/10/2022 00:44 [facility] TYPE: Surgical Services DIAGNOSES: - Other pulmonary embolism without acute cor pulmonale - Endocarditis, septic emboli - Acute and subacute infective endocarditis 05/27/2022 12:11 [facility] [place] TYPE: Medical Surgical COMPLAINT: - PNEUMONIA DIAGNOSES: - Sepsis due to Methicillin susceptible Staphylococcus aureus - Other pulmonary embolism without acute cor pulmonale - Pneumonia, unspecified organism - Hypo-osmolality and hyponatremia - Hypokalemia - History of uterine scar from previous surgery - Anemia, unspecified - Hypokalemia - Other specified anxiety disorders - Anemia, unspecified - Contact with and (suspected) exposure to COVID-19 - Other specified anxiety disorders - Other pulmonary embolism without acute cor pulmonale - Hypo-osmolality and hyponatremia - Gastro-esophageal reflux disease with esophagitis, without bleeding - Excessive and frequent menstruation with regular cycle - Contact with and (suspected) exposure to COVID-19 - Acute and subacute infective endocarditis - Excessive and frequent menstruation with regular cycle - Other specified postprocedural states - Other specified postprocedural states - History of uterine scar from previous surgery - Pneumonia, unspecified organism - Gastro-esophageal reflux disease with esophagitis, without bleeding - Acute and subacute infective endocarditis [email or web address]
[2022-07-08] MEDS ORDERED: HYDROCODON-ACE1 EA10 PO (18:42)
[2022-07-08] MEDS ORDERED: LIDODERM1 EACH TOP (18:42)
--- NOTE | 2022-07-09 07:21 | EKG ---
[facility] [address] [facility] [place], [place] [address] Signed Normal sinus rhythm Normal ECG When compared with ECG of 19-JUN-2022 15:19, No significant change was found Confirmed by MILADY CRUZ MD ([id number]) on 07/09/2022 7:21:20 AM Electronically Signed By: MILADY CRUZ MD 07/09/22720 PATIENT NAME: MÓNICA WILCOX CHIQUITA Electrocardiogram DATE OF : 83 PHYSICIAN: MILADY CRUZ MD REPORT #: [id number] REPORT IS CONFIDENTIAL AND NOT TO BE RELEASED WITHOUT AUTHORIZATION
== END 2022-07-08 20:00 | disposition home or self-care (01) ==
LOC: ED 16:39
DX: S29.9XXA Unspecified injury of thorax, initial encounter (principal); F17.200 Nicotine dependence, unspecified, uncomplicated; Z88.8 Allergy status to other drugs, medicaments and biological substances; Z88.1 Allergy status to other antibiotic agents; Z79.899 Other long term (current) drug therapy; Z79.01 Long term (current) use of anticoagulants; W01.0XXA Fall on same level from slipping, tripping and stumbling without subsequent striking against object, initial encounter
CPT/HCPCS: 93005; 93010; 99283-25